=== PATIENT | male | born 1955 | race Caucasian/White ===

== ENCOUNTER → 2017-03-24 | Outpatient (CLI) | payer OTHER, MEDICAID ==
--- NOTE | 2017-03-24 09:51 | NOWCEV ---
[facility] OUTPATIENT REHABILITATION SERVICES WHEELCHAIR CLINIC EVALUATION AND LETTER OF JUSTIFICATION Patient Name: GIOVANNI CADENA Physician: Eunice Arrieta MD Eval Date: 03/24/17 Therapist: Winter Rob PT,MSPT Date of : 1955 MR#: [id number] Contact: Ramiro Draperford Subscriber: GIOVANNI CADENA Primary Ins: [employer] Subscriber #: [id number] EVALUATION FINDINGS Medical history - Giovanni is a 61 y/o male who was dx with secondary progressive Multiple Sclerosis (MS) in 2003. Since that time he has had a consistent decline in his mobility. He also has a PMH significant for atrial fibrillation, a R total knee arthroplasty, coronary artery disease, and hypertension. Giovanni has been home bound due to his MS for several years. He was referred to this clinic by his doctor to have recommendations made for the most medically appropriate PWC to meet his needs in the community and in the home as his condition progresses. Functional Mobility -La functional mobility is significantly limited by his impaired balance and fatigue. He is able to ambulate ~25 distances within his home with use of a cane and UE support from rails installed around the home. He reports he has tried ambulating with a rw, but found the device difficulty to maneuver. When he walks, Giovanni as a wide KATIE, dec heel strike, dec push off and a short step length. He postures with L UE for balance and intermittently catches his R toe. He completed the TUG in 22 sec with a cane, which indicates an increased fall risk. To complete transfers, Giovanni utilizes a stand/squat pivot strategy. He pushes off strongly with his UEs on the chair arm rest and presses the back of his legs against the surface to maintain his balance. To sit, Giovanni has very poor eccentric control, despite use of his arms on the arm rest. Giovanni is I with bed mobility. Giovanni does have a positive fall history. He reports that he has fallen multiple times in his home when he fatigues, and catches his toe or his R leg gives out. Motor involvement - Giovanni's R side is impacted by the MS more than his L side. MMT is as follows: hip flexion R: 3-/5, L: 4-/5, hip abduction R: 2-/5, L : 2+/5, knee extension R: 4+/5, L: 5/5, DF R: 4-/5, L: 4/5, shoulder abduction and flexion R: 4-/5, L: 4/5. With repeated testing and effort, Giovanni's strength will decline as his MS leads to rapid fatigue which impacts his function and safety. Giovanni has significant tightness in B hamstrings with a passive SLR to 30degrees. He has clonus in B ankles. His coordination is impaired demonstrated by rapid alternating movements being slowed on the R. Giovanni has significantly impaired balance. He demonstrates a loss of balance in response to a minimal perturbation in standing. He showed almost no corrective reactions such as stepping or postural responses in response to challenges and required physical assistance to prevent falling. Posture - Giovanni has a relatively level pelvis. He sits with a slouched posture, rounded shoulders and posterior pelvic tilt. Skin/ Sensation - La reports that he is regularly incontinent of bowel and bladder as a result of his MS. He does also report some hypersensitivity on his backside. He does not have history of skin breakdown. Endurance - Giovanni has poor endurance. He reports that on a good day he can ambulate a maximum of 30' with AD. On a day where he is experiencing increased fatigue from his MS, Giovanni reports he is only able to walk ~10', despite use of an AD. Giovanni has been unable to access the community for some time due to his limited endurance, and intermittently has difficulty accessing his home due to fatigue. ADLs - Giovanni is modified independent with ADLs including bathing and dressing. He relies on his for tasks such as cooking and cleaning. Cognitive/Social - Giovanni lives with his in a single level home with ramp entry. 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 He is only able to access the community with assistance from his to attend medical appointments. Otherwise he is home bound due to his poor endurance and decreased balance from his MS. Giovanni plans on purchasing a wheelchair accessible vehicle to enable him to access with community in his PWC. Current wheelchair - Giovanni does not currently own a manual or power wheelchair. MEDICAL and FUNCTIONAL NEED/OBJECTIVES * To procure a custom PWC to provide Giovanni with independent, safe, and consistent access to the community to complete activities such as grocery shopping and attending medical appointments. Also required to provide Giovanni with safe access to his home during an MS exacerbation and as is MS progresses. PRIMARY FUNCTIONAL LIMITATION (G Code) * Mobility CURRENT STATUS OF PRIMARY FUNCTIONAL LIMITATION (Severity Modifier) * At least 40 percent but less than 60 percent impaired, limited or restricted ( CK) GOAL STATUS OF PRIMARY FUNCTIONAL LIMITATION (Severity Modifier) * At least 40 percent but less than 60 percent impaired, limited or restricted ( CK) DISCHARGE STATUS OF PRIMARY FUNCTIONAL LIMITATION (Severity Modifier) * At least 40 percent but less than 60 percent impaired, limited or restricted ( CK) EQUIPMENT RECOMMENDATIONS AND JUSTIFICATIONS The following recommendations are believed to be the most cost effective way to meet the patients medical and functional needs. * Group 3 power base (OneTag DILANX SP): Needed to provide Giovanni with safe, independent, and consistent access to the community, as well as his home when having an MS exacerbation and as his MS progresses. Giovanni is not able to access the community and has been home bound for some time as his ability to ambulate is limited due to his poor endurance and balance, even with use of an assistive device such as a cane or walker. He reports on a bad day only being able to ambulate ~10' within his home with his AD, and has had many falls within his home even when utilizing his AD. A MWC, even a light weight model, is not appropriate due to Giovanni's poor endurance. He would not be able to self propel distances from his car/around a grocery store without fatiguing and placing his at risk for exacerbation of his MS symptoms. Additionally, Giovanni would not be able to self propel a MWC up a ramp due to fatigue. A scooter is not appropriate as Giovanni will not be able to safely complete transfers onto/ off of a platform without increased risk of fall, and the base of a scooter is too large to fit in Giovanni's home to allow him access to MRADLs as his condition progresses. A custom PWC will provide Giovanni with safe and consistent access to the community to complete task such as grocery shopping and independently attending medical appointments, and the more supportive seating system will provide Giovanni with postural support to manage his fatigue. Giovanni will also be able to utilize his MWC in his home when he is too fatigued from his MS to access MRADL, such as walking distances between the bedroom and the bathroom, and as his condition progresses. Additionally, a custom chair is necessary due to the progressive nature of MS as can be modified to fit Giovanni as his symptoms progress. * Height adjustable arm rests: Needed to allow Giovanni to complete transfers safely, The increased height is needed because Giovanni is 6'3" tall, and he needs the increased height to gain leverage to stand. * Retractable joystick: Needed so that joystick can be pushed out of the way so that is does not interfere with transfers. Need to allow Giovanni to pull more closely up to surfaces to complete tasks. * Batteries: Needed to provide the chair with power to allow Giovanni to drive his device. * Center mount foot plate: Needed so that foot rest can be easily moved out of the way to complete transfers. Also needed to keep the foot print of the chair small, as Giovanni will use the [facility] to access his home as his MS progresses. * Skin protection cushion: Needed to provide Giovanni with appropriate pressure distribution and decreased skin irritation when he is in his chair to help manage his skin hypersensitivity and decrease risk of skin breakdown which he is at greater risk for due to his incontinence. * General use backrest: Needed to provide Giovanni with postural support as he fatigues when accessing the community in his [facility], and to prevent development of postural abnormalities as his MS progresses. * Transit tie downs: Needed to secure Giovanni's chair for safe use during transit, as he will be purchasing a [facility] accessible vehicle and utilizing public transportation. These recommendations are based on the likelihood that Giovanni will require the use of a wheelchair for mobility for the rest of his life. If you have any questions or concerns regarding the stated recommendations, please feel free to contact the therapist at . Thank you for your cooperation in obtaining the necessary equipment for this patient. STACIE Seo
== END ==
PROVIDERS: ATTEND Family Medicine
DX: G35 Multiple sclerosis (principal); I48.91 Unspecified atrial fibrillation; I25.10 Atherosclerotic heart disease of native coronary artery without angina pectoris; I10 Essential (primary) hypertension; Z96.651 Presence of right artificial knee joint
CPT/HCPCS: 97162; G8978; G8979; G8980

== ENCOUNTER 2017-09-02 16:56 | Inpatient (IN) | payer OTHER, MEDICAID ==
--- NOTE | 2017-09-02 17:01 | EDPHY ---
H & P Time Seen by Provider: 09/02/17 16:57 HPI/ROS: CHIEF COMPLAINT: Left-sided weakness, fall HISTORY OF PRESENT ILLNESS: This patient is a pleasant 62 y/o male with history of multiple sclerosis presenting following a fall due to left-sided leg weakness. He is generally followed by a neurologist at [facility]. Over the last 10 days, he has had left leg weakness. Initially, he felt a pain in his upper thigh similar to a bruised feeling. He denies numbness but states the leg "does not seem to be working". He has fallen about six times since this began. He denies injuring himself or striking his head. He generally ambulates with a cane but has been using a walker or wheelchair over the past week. He is scheduled for MRI brain and spine on Thursday, but his family has been unable to properly care for him and is concerned regarding his frequent falls. The patient denies any weakness in his arms or his right leg. No headache, chest pain, abdominal pain, other complaints. REVIEW OF SYSTEMS: A 10 point review of systems was performed and is negative with the exception of the elements mentioned in the history of present illness. Past Medical/Surgical History: Multiple sclerosis CAD s/p stent placement Social History: . Lives in [place]. Former smoker. Physical Exam: General Appearance: Alert, pleasant Eyes: Pupils equal and round, no conjunctival pallor or injection ENT, Mouth: Mucous membranes moist Neck: Normal inspection Respiratory: Lungs are clear to auscultation Cardiovascular: Regular rate and rhythm Gastrointestinal: Abdomen is soft and non-tender Neurological: Alert, oriented x3, cranial nerves II through XII intact, sensory intact to light touch, motor: 4+/5 LLE, 5/5 other extremities Skin: Warm and dry, no rash Extremities: Nontender, no pedal edema Psychiatric: Mood and affect normal Constitutional: Initial Vital Signs Heart Rate 65 09/02/17 17:04 Respiratory Rate 20 09/02/17 17:04 Blood Pressure 189/102 H 09/02/17 17:04 O2 Sat (%) 97 09/02/17 17:04 O2 Delivery Mode Room Air Allergies/Adverse Reactions: No Known Allergies Allergy (Verified 09/02/17 17:03) Home Medications: Medication Instructions Recorded Carvedilol [Coreg (*)] 25 mg PO BIDMEAL 09/02/17 Cyclobenzaprine [Flexeril 10 MG 10 mg PO TID PRN 09/02/17 (*)] FLUDROCORTISONE ACETATE 0.1 mg PO DAILY 09/02/17 Losartan Potassium [Cozaar 25 mg 25 mg PO DAILY 09/02/17 (*)] Nitroglycerin [Nitrostat 0.4 mg 0.4 mg SL Q5M PRN 09/02/17 (*)] Rosuvastatin Calcium [Crestor 20mg 20 mg PO DAILY 09/02/17 (*)] Medical Decision Making ED Course/Re-evaluation: 62 y/o male with history of MS presents with LLE weakness leading to multiple falls in the last 10 days. Concern for MS exacerbation. Fortunately there is no evidence of injury. No clinical history of infection and he is afebrile. Plan for admission for further management. Case management consulted. Plan for labs including CBC, chemistries, UA. Plan for MRI brain with and without contrast. If this is unremarkable, he will need an MRI of his spine. 17:[address] with [address] service. Dr. Lutz accepts admission for MS, LLE weakness. 1920: MRI of the brain read by Dr. Hayden Luna reveals no evidence of active MS. Differential Diagnosis: Differential diagnosis includes though is not limited to cardiac dysrhythmia, CVA, TIA, GI bleed, sepsis, hypoglycemia. - Data Points Laboratory Results: Laboratory Results 09/02/17 17:30 09/02/17 17:30 Medications Given: Carvedilol (Coreg) 25 mg PO BIDMEAL [facility] Stop: 03/01/18 22:59 Last Admin: 09/03/17 18:18 Dose: 25 mg Cyclobenzaprine HCl (Flexeril) 10 mg PO TID PRN PRN Reason: Spasms Stop: 03/01/18 22:58 Last Admin: 09/03/17 09:10 Dose: 10 mg Enoxaparin Sodium (Lovenox) 40 mg SC DAILY [facility] Stop: 03/02/18 08:59 Last Admin: 09/03/17 09:11 Dose: 40 mg Fludrocortisone Acetate (Florinef) 0.1 mg PO DAILY [facility] Stop: 03/02/18 08:59 Last Admin: 09/03/17 09:08 Dose: 0.1 mg Methylprednisolone Sodium (Succinate 1 gm/ Dextrose) 108 mls @ 108 mls/hr IV DAILY [facility] Stop: 09/05/17 12:00 Last Admin: 09/03/17 10:22 Dose: 108 mls Losartan Potassium (Cozaar) 25 mg PO DAILY [facility] Stop: 03/02/18 08:59 Last Admin: 09/03/17 09:08 Dose: 25 mg Rosuvastatin Calcium (Crestor) 20 mg PO DAILY [facility] Stop: 03/02/18 08:59 Last Admin: 09/03/17 09:08 Dose: 20 mg Discontinued Medications Baclofen (Baclofen) 10 mg PO EDNOW ONE Stop: 09/02/17 18:26 Last Admin: 09/02/17 19:39 Dose: 10 mg Departure - Departure Disposition: [facility] Inpatient Acute Clinical Impression: Multiple sclerosis, Weakness of left lower extremity Condition: Fair Report Scribed for: Linda Anaya Report Scribed by: Merari Fernandez Date of Report: 09/02/17 Time of Report: 17:02 Physician Review and Approval Statement: 09/02/17 17:02 Portions of this note were transcribed by a director biomedical engineering. I personally performed a history, physical exam, medical decision making, and confirmed accuracy of information the transcribed note.
[2017-09-02 17:51] LABS: PLATELET COUNT 249 10^3/uL (150-400)
[2017-09-02] MEDS ORDERED: ACETAMINOPHEN 325 MG TAB PO PRN (18:09)
[2017-09-02] MEDS ORDERED: ONDANSETRON DISINTEGRATING 4 MG TAB PO PRN (18:09)
[2017-09-02] MEDS ORDERED: ONDANSETRON 4 MG/2 ML VIAL IVP PRN (18:09)
[2017-09-02] MEDS ORDERED: ZOLPIDEM TARTRATE 5 MG TAB PO PRN (18:09)
[2017-09-02] MEDS ORDERED: BACLOFEN 10 MG TAB ONE (18:24)
[2017-09-02] MEDS ORDERED: BACLOFEN 10 MG TAB PO ONE (18:25)
[2017-09-02] MEDS ORDERED: GADOBUTROL 10 ML VIAL IVP ONE (18:41)
[2017-09-02] MEDS ORDERED: NITROGLYCERIN 0.4 MG BTL SL PRN (22:59)
[2017-09-02] MEDS ORDERED: hydrALAZINE 25 MG TAB PO PRN (23:02)
--- NOTE | 2017-09-02 23:11 | PDGENHP ---
History and Physical History and Physical: CC: Weakness and falls HISTORY: This patient with a long history of multiple sclerosis comes into the ER now noticing significant progression of weakness in his left leg over the last couple of weeks, then onset of urinary frequency and incontinence as well as slurring of his voice, coughing and throat clearing with swallowing, and generalized weakness. The progression of weakness in his legs led him to start falling and he has had at least 6 falls over the last couple days, he does not feel there is any injury. He has not noticed any loss of sensation in his legs face or otherwise. There is no headache, no fever, no symptoms of acute infectious illness otherwise. He has had no recent changes in medication. He has not been bleeding vomiting having diarrhea or other fluid losses. He does not use alcohol. He is not on any disease modifying treatment for MS at this time having been told by his neurologist at [facility] that he had be developed was called progressive MS and that they had no further treatments. At this point he uses symptomatic treatment such as muscle relaxers. The patient tells me that he visited a spine surgeon at the [facility] last week because of his leg weakness. He was told that there was nothing surgical did due for his weakness and that it was not from his spine. He was also told by the surgeon that he he felt that there were new treatments since he was last on treatment for MS that he should consider and that he should be back working with the MS physicians in the clinic there. ROS: A comprehensive 10 system review revealed no other significant findings PAST MEDICAL HISTORY: Multiple sclerosis, initially diagnosed as relapsing remitting but apparently now called progressive by his neurologist at [facility] Coronary artery disease status post stents FAMILY MEDICAL HISTORY: Nothing related to his current illness or symptoms SOCIAL HISTORY: lives with his . His and daughter are here with him now No alcohol no tobacco no street drugs MEDICATIONS: The patients list has been reconciled by our clinical pharmacist in the EMR. I have reviewed the list and ordered appropriate medicines. PHYSICAL EXAMINATION: Vital Signs: Some systolic hypertension of significance here tonight, otherwise stable vitals without fever Milk Of Lime Slaker: Sinus Examination: General: alert, oriented, good mentation, relaxed Neurologic: normal language and while his speech sounds normal to me he and his family both appreciate now that there is some slurring to his pronunciation the subtle but present; normal barrel handler, normal eye movements and pupil reflexes; his left leg is noticeably weaker than the right at both proximal hip flexion extension and ankle and toe dorsiflexion; no definite sensory loss Skin: warm, dry, good color, no rash HEENT: normal Neck: no mass or jvd Resps: relaxed Lungs: clear breath sounds Heart: regular, no murmur Abdomen: soft, nondistended, nontender, +BS, no mass Upper Extremities: normal Lower Extremities: no edema, warm No Bleeding or bruising IV site: looks normal LABORATORY DATA: CBC, metabolic panel, UA all unremarkable RADIOLOGY STUDIES: MRI is done with and without contrast and I reviewed the images as well as radiologist's report: There are obvious extensive demyelinating lesions scattered through the left and right brain; the radiologist does not feel that there is any evidence of acute active inflammatory change though I am not able myself to discern the difference between acute or chronic demyelination; no other acute abnormalities at this time ASSESSMENT: -acute onset of left leg weakness both proximal and distal, resulting in falls over the past 10-14 days -acute onset of urinary frequency and incontinence without any burning or discomfort -acute onset of slurring of speech as well as dysphagia with symptoms suggesting aspiration is likely occurring -chronic MS, probably progressive but no current neurologic records available -patient reports that his spine surgeon last week at the [facility] does did not believe his current symptoms are related to spine disease -stable history of coronary disease At this point the MRI does not in the radiologist's interpretation represent acute inflammatory lesions of MS flare. Whether there is any possibility that the MRI could be missing that I would ask neurologist to comment on. There is no change in medications, fever, laboratory abnormality, or other findings that would easily explain a worsening of chronic MS dysfunctions from a metabolic or similar mechanism. The urinary symptoms sound most likely caused by MS but 1 could possibly consider that a urinary tract infection could be present and that could cause worsening of chronic MS symptoms. PLANS: Admission hospital with fall risk precautions Neurology consult Check urinalysis but sure there is no urinary infection Will not start high-dose steroids at this time but he may need that if there is a sense after neurology consultation that this may actually be an acute MS flare. Continue the patient's other current medications at this time Have requested get records from the [facility] to at least cover his spine surgery visits as his symptoms could potentially be caused by either spinal MS or compressive disease from disc or other etiology, hopefully can get some neurology clinic records as well I have reviewed the patient's case in detail with Dr. Linda Anaya
[2017-09-02] MEDS: CARVEDILOL 25 MG TAB PO SCH (23:44)
[2017-09-03] MEDS: CARVEDILOL 25 MG TAB PO SCH ×2 (09:07→18:18)
[2017-09-03] MEDS: LOSARTAN POTASSIUM 25 MG TAB PO SCH (09:08)
[2017-09-03] MEDS: ROSUVASTATIN CALCIUM 20 MG TAB PO SCH (09:08)
[2017-09-03] MEDS: FLUDROCORTISONE ACETATE 0.1 MG TAB PO SCH (09:08)
[2017-09-03] MEDS: CYCLOBENZAPRINE 10 MG TAB PO PRN ×2 (09:10→23:14)
[2017-09-03] MEDS: ENOXAPARIN 40 MG/0.4 ML SYR SC SCH (09:11)
--- NOTE | 2017-09-03 10:13 | GCON ---
[f rep st] CONSULTATION NEUROLOGY CONSULTATION REFERRING PHYSICIAN: Jose Lutz MD HISTORY: The patient is a 62-year-old gentleman who I have seen in the past for multiple sclerosis c linical trial, but has previously been followed at the [facility] for his secondary progr essive multiple sclerosis. He is here because about 10 days ago he started having rather profound we akness of the left leg. He awoke and fell because of weakness in the leg and has continued to have w eakness there. He spoke to Dr. Arrieta on the phone, who advised him to go to the hospital. The pa jose is really not on any specific disease modifying therapy at this point because the feeling has b een it is unlikely to be productive or helpful for him. This is through multiple sclerosis experts a t the [facility]. He is not safe to be at home, and previously was walking independently even if he was using wall walking. He had a little bit of low back pain which has resolved. He den ies left lower extremity pain. The leg is simply weak. There is not a lot of numbness change from h is baseline. PAST MEDICAL HISTORY: As outlined above. History of coronary disease. FAMILY HISTORY: Noncontributory. SOCIAL HISTORY: He lives with his . No alcohol or smoking. CURRENT MEDICATIONS: Tylenol, Coreg, Flexeril, Lovenox, Florinef, Cozaar, Nitrostat, Ambien, Crestor . ALLERGIES: No drug allergies. REVIEW OF SYSTEMS: A 10-point review of systems was completed and unremarkable except for that noted above. PHYSICAL EXAMINATION: VITAL SIGNS: Blood pressure is 154/94, pulse of 68, respirations 16, temperat ure 36.8. GENERAL: He is well developed in no acute distress. NECK: Supple. No bruits or masses. CARDIAC: Regular rate and rhythm. No murmur. NEUROLOGIC: He is awake, alert, attentive with gen erally clear and fluent speech although I would say there is a mild dysarthria, but this is about his baseline from knowing him in the past. Pupils 3 mm and reactive. Extraocular movements are intact. Normal facial sensation and strength. Palate elevates symmetrically and tongue protrudes midline. He has a strong cough. Strong sniff. Motor exam reveals fairly well preserved strength in the uppe r extremities, and at least 4 to 4+/5 right lower extremity, but left lower extremity proximally and distally is in the 2 to 3/5 range with some proximal atrophy. Reflexes are 1+. Sensation is slightl y diminished to temperature in the left leg compared to the right. I reviewed the brain MRI showing extensive changes of demyelinating disease without any obvious, acute demyelinating lesions. LABORATORY STUDIES: Unremarkable CBC and electrolytes. No significant changes in the urine. IMPRESSION: The patient is having a probable multiple sclerosis exacerbation on top of his baseline secondary progressive disease for which he has had treatment in the past and extensive work with clin ical trials, but is continuing to have a gradual decline, although this abrupt change is consistent w ith an acute multiple sclerosis related problem. It may very well be at a spinal level, but I do not think he needs spinal cord imaging. That really would not change our management strategies at this point because I do not suspect a mass lesion or other alternative explanation very likely. He needs inpatient rehab I believe, and we will start him on IV steroids with a plan to give him 3 days of IV Solu-Medrol 1000 mg. I do not believe he needs a tapering dose after that. Today's total unit time was 70 minutes. /[id number]/MODL
[2017-09-03] MEDS: methylPREDNISolone SOD SUCC 1 GM in D5W 100 ML IV SCH (10:22)
--- NOTE | 2017-09-03 10:43 | HOSPPROG ---
Hospitalist Progress Note Assessment/Plan: 62y male with c/o weakness. First encounter, chart reviewed. D/W RN and CM. #Likely MS exacerbation appreciate neurology consult started IV steriod x 3 days #Weakness rec inpt rehab cont PT/OT eval #Falls over the past 10-14 days likely related to above #acute onset of urinary frequency and incontinence UA negative #acute onset of slurring of speech dysphagia with symptoms suggesting aspiration is likely occurring follow close #stable history of coronary disease #Dispo hopefully inpt rehab Subjective: Feeling tired and weak. No pain. No issues. Objective: Vital Signs Temp Pulse Resp BP Pulse Ox 36.8 C 68 16 154/94 H 95 09/03/17 07:23 09/03/17 09:07 09/03/17 07:23 09/03/17 09:08 09/03/17 07:23 Laboratory Results 09/02/17 18:15 09/02/17 09/03/17 09/04/17 05:59 05:59 05:59 Intake Total 100 300 Output Total 600 Balance -500 300 - Physical Exam Constitutional: no apparent distress, appears nourished, not in pain Eyes: PERRL, anicteric sclera, EOMI Ears, Nose, Mouth, Throat: moist mucous membranes, hearing normal, ears appear normal Cardiovascular: regular rate and rhythym, No JVD, No edema Respiratory: no respiratory distress, no rales or rhonchi, reduced air movement Gastrointestinal: normoactive bowel sounds, No tenderness, No ascites Skin: warm, normal color, No mottled Musculoskeletal: normal joint ROM, abnormal gait, generalized weakness Neurologic: AAOx3, weakness Psychiatric: interacting appropriately, not anxious, not encephalopathic, thought process linear ICD10 Worksheet Patient Problems: Problems Problem Status Onset Multiple sclerosis Acute Weakness of left lower extremity Acute
--- NOTE | 2017-09-03 11:08 | ASMTCMCOM ---
CM Note CM Note Notes: Patient admitted for acute on chronic weakness, likely due to progression of his MS. He is followed by MS experts at the [facility]. Neurology eval today recommends a few days of IV steroids and inpatient rehab. An order has been placed. PT/OT/HOSE TENDER have yet to see patient; we will await their recommendations. Patient lives independently with his Nae. Case Management will follow for discharge planning. Date Signed: 09/03/2017 11:08 AM Electronically Signed By:Olamide Stapleton RN
--- NOTE | 2017-09-03 13:26 | PDMN ---
Medical Necessity Medical necessity: Pt meets IP criteria per MD; est los >2 mn for eval/tx of acute onset of significant LLE weakness resulting in falls, urinary frequency & incontinence, slurring of speech, as well as dysphagia w/symptoms suggesting aspiration; admit for further workup/monitoring, Neuro consult, possible IV steroids & therapies; hx progressive MS & CAD s/p stents; per H&P & order
[2017-09-04 07:55] VITALS: BP 111/76; RESP 19; TEMP 98.4; O2SAT 98
[2017-09-04] MEDS: methylPREDNISolone SOD SUCC 1 GM in D5W 100 ML IV SCH (09:09)
[2017-09-04] MEDS: CARVEDILOL 25 MG TAB PO SCH (09:10)
[2017-09-04] MEDS: FLUDROCORTISONE ACETATE 0.1 MG TAB PO SCH (09:10)
[2017-09-04] MEDS: ENOXAPARIN 40 MG/0.4 ML SYR SC SCH (09:10)
[2017-09-04] MEDS: ROSUVASTATIN CALCIUM 20 MG TAB PO SCH (09:11)
[2017-09-04] MEDS: LOSARTAN POTASSIUM 25 MG TAB PO SCH (09:11)
[2017-09-04 09:12] VITALS: PULSE 100
--- NOTE | 2017-09-04 09:29 | NEUROPROG ---
Assessment: Total unit time 15 min today. The patient is stable after 1 day of IV Solu- Medrol and should be a candidate for inpatient rehab. He will continue 2 more days of IV steroids. This multiple sclerosis exacerbation is on top of chronic progressive multiple sclerosis. Subjective: The patient tells me this morning that he is feeling a little bit better in the left leg. He cannot stand for more than a few seconds because of left leg weakness and that is only with 2 people helping to support him. Objective: Vital Signs Temp Pulse Resp BP Pulse Ox 36.9 C 100 19 111/76 98 09/04/17 07:53 09/04/17 09:10 09/04/17 07:53 09/04/17 09:11 09/04/17 07:53 Laboratory Results 09/02/17 18:15 09/03/17 09/04/17 09/05/17 05:59 05:59 05:59 Intake Total 100 878 Output Total 600 600 200 Balance -500 278 -200 He continues to have about 3/5 strength in the left lower extremity or only slightly greater. Allergies/Adverse Reactions: No Known Allergies Allergy (Verified 09/02/17 17:03)
--- NOTE | 2017-09-04 12:43 | HOSPPROG ---
Hospitalist Progress Note Assessment/Plan: Patient is a 61-year-old male with a history of multiple sclerosis who presented the emergency room with progression of weakness in his left leg, then onset of urinary frequency and incontinence as well as slurring of his voice. He visited a spine surgery in because of the leg weakness. He was told there is nothing due to this weakness and was not from his spine. Today is my 1st encounter with the patient. Chart reviewed. Reviewed Dr. Lawrence input. Will discharge him to inpatient rehab today #multiple sclerosis exacerbation is on top of chronic progressive multiple sclerosis. appreciate neurology consult started IV steroid x 2/3 days #Weakness rec inpt rehab cont PT/OT evaluated/ recommendation is rehab #Falls over the past 10-14 days likely related to above #acute onset of urinary frequency and incontinence UA negative #acute onset of slurring of speech dysphagia with symptoms suggesting aspiration is likely occurring follow close #history of coronary disease #tachycardia resolve w coreg (on this regularly) #Dispo inpt rehab Subjective: Giovanni has no complaints, concerned about his left leg weakness. Objective: Vital Signs Temp Pulse Resp BP Pulse Ox 36.9 C 100 19 111/76 98 09/04/17 07:53 09/04/17 09:10 09/04/17 07:53 09/04/17 09:11 09/04/17 07:53 Laboratory Results 09/02/17 18:15 09/03/17 09/04/17 09/05/17 05:59 05:59 05:59 Intake Total 100 878 Output Total 600 600 200 Balance -500 278 -200 - Physical Exam Constitutional: no apparent distress, appears nourished, not in pain Eyes: PERRL Ears, Nose, Mouth, Throat: hearing normal Respiratory: no respiratory distress Skin: warm Musculoskeletal: generalized weakness Neurologic: AAOx3 Psychiatric: interacting appropriately ICD10 Worksheet Patient Problems: Problems Problem Status Onset Multiple sclerosis Acute Weakness of left lower extremity Acute
[2017-09-04] MEDS ORDERED: FLUoxetine 20 MG CAP PO SCH (13:30)
--- NOTE | 2017-09-04 13:35 | PDIAF ---
- Diagnosis Diagnosis: acute MS exacerbation on progressive MS Code Status: Full Code - Medication Management Discharge Medications: Medications to Continue on Transfer Carvedilol [Coreg (*)] 25 mg PO BIDMEAL 09/02/17 [Last Taken 09/02/17 09:00] Cyclobenzaprine [Flexeril 10 MG (*)] 10 mg PO TID PRN 09/02/17 [Last Taken 09/02 09:00] FLUDROCORTISONE ACETATE 0.1 mg PO DAILY 09/02/17 [Last Taken 09/02/17] Losartan Potassium [Cozaar 25 mg (*)] 25 mg PO DAILY 09/02/17 [Last Taken ] Nitroglycerin [Nitrostat 0.4 mg (*)] 0.4 mg SL Q5M PRN 09/02/17 [Last Taken Unknown] Rosuvastatin Calcium [Crestor 20mg (*)] 20 mg PO DAILY 09/02/17 [Last Taken 09:00] FLUoxetine [Prozac 20 MG (*)] 40 mg PO DAILY 09/04/17 [Last Taken 09/02/17] methylPREDNISolone SOD SUCC [Solu-Medrol 1 gm (*)] 1 gm IV DAILY #1 vial [Last Taken Unknown] Urology Nurse Antibiotics: methylprednisolone 1 gm iv x one more dose on 09/05/17, then dc Discharge Medications: Refer to the Discharge Home Medication list for PRN reason. - Orders Services needed: Physical Therapy, Occupational Therapy, Speech Language Pathologist Diet Recommendation: no restrictions on diet Diet Texture: Regular Texture Diet, Thin Liquids, Meds Whole w/Liquids Additional: PLEASE NOTE, PATIENT NEEDS ONE DOSE IV OF STEROIDS, THEN DC - Follow Up Care Current Providers and Referrals: Patient,NotPresent [Unknown] - As per Instructions Duncan Lawrence MD [Medical Doctor] -
--- NOTE | 2017-09-04 13:58 | GDS ---
[f rep st] DISCHARGE SUMMARY DISCHARGE DIAGNOSES: 1. Acute multiple sclerosis exacerbation on progressive multiple sclerosis. 2. Weakness. 3. Falls over the past 10-14 days. 4. Acute onset of urinary frequency and incontinence. 5. Acute onset of slurring speech. 6. History of coronary artery disease. 7. Tachycardia. CONSULTATION: Dr. Duncan Lawrence. HISTORY: Briefly, the patient is a 62-year-old male with a history of multiple sclerosis who present ed to the emergency room with progression of weakness in his left leg. Then he had onset of urinary frequency, incontinence, as well as slurring of his voice. In the past, he has visited a spine surge on because of his leg weakness. He was told there was nothing to do due to his weakness and was not from the spine. He was seen and evaluated by Dr. Duncan Lawrence and was given IV steroids. He is fe eling better after 2 doses of IV steroids, but requires still assist x2. Additionally, he had an MRI of the brain, which showed extensive periventricular and subcortical white matter disease in the pat tern typical of multiple sclerosis. He has no evidence of active demyelination. No acute ischemia o r intracranial hemorrhage was noted. He has atrophy. Today, he will be discharged to inpatient reha bilitation for strengthening. He will get 1 more dose of IV steroids at the inpatient rehab. HOSPITAL COURSE BY PROBLEM: 1. Acute multiple sclerosis exacerbation on top of chronic progressive multiple sclerosis. He will be on IV steroids. He has received his 2nd dose today. He will need 1 more dose tomorrow. 2. Weakness. PT and OT evaluated him. They are recommending rehabilitation. 3. Falls due to the above. 4. Acute onset of urinary frequency and incontinence. His urinalysis is negative. 5. Acute onset of slurring of speech. He will be seeing speech therapy at the rehabilitation [facility]. He did not have any at the time I evaluated him. 6. History of coronary disease, stable. 7. Tachycardia. This resolved once he resumed his Coreg. DISCHARGE CONDITION: Stable. Blood pressure is 111/76, heart rate is 100, respiratory rate is 19, O 2 saturation on room air 98%, temperature 36.9 Celsius. MEDICATIONS AT DISCHARGE: Please see the EMR. DISCHARGE INSTRUCTIONS: 1. Further follow up with Dr. Lawrence. 2. Recommending he get IV steroids for 1 more day. Greater than 30 minutes discharging and coordinating his care. /[id number]/MODL
[2017-09-04] MEDS: CYCLOBENZAPRINE 10 MG TAB PO PRN (15:15)
--- NOTE | 2017-09-04 16:08 | ASDISCHSUM ---
Discharge Information Plan Status:Inpatient Rehab Medically Cleared to Leave: Discharge Date:09/04/2017 03:27 PM CM D/C Disposition:[facility] ADT D/C Disposition:[facility] IP Projected Discharge Date:09/04/2017 11:00 AM Transportation at D/C:ALS/BLS Discharge Delay Reason: Follow-Up Date:09/04/2017 11:00 AM Discharge Slot: Final Diagnosis: Placement Information Referral Type:Rehabilitation Hospital Referral ID:[id number] Provider Name:[facility] Address 1:[address] Phone Number: Address 2: Fax Number: City:[place] Selection Factors: State:[place] Patient Contact Information Contact Name:JACOBOEMMA Relationship: Address:[address] [place] [address] City:[place] Alternate Phone: State/Zip Code:[place] [address] Email: Financial Information Financial Class:Medicare Primary Plan Desc:MEDICARE INPATIENT Primary Plan Number:[id number] Secondary Plan Desc:MED[place] Secondary Plan Number:[id number] Assessment Information [facility] CM Progress Note CM Note CM Note Notes: Patient admitted for acute on chronic weakness, likely due to progression of his MS. He is followed by MS experts at the [facility]. Neurology eval today recommends a few days of IV steroids and inpatient rehab. An order has been placed. PT/OT/PROCESSING REP have yet to see patient; we will await their recommendations. Patient lives independently with his Nae. Case Management will follow for discharge planning. Date Signed: 09/03/2017 11:08 AM Electronically Signed By:Olamide Stapleton RN [facility] CM Progress Note CM Note CM Note Notes: Pt medically stable for d/c to [facility] inpatient rehab who can continue pt IV steroids. PCS in chart and stretcher transport scheduled w [facility] for 13:30. Orders to be obtained via [employer]. Date Signed: 09/04/2017 04:07 PM Electronically Signed By:ARTURO Grayson Intervention Information
--- NOTE | 2017-09-04 16:08 | ASMTCMCOM ---
CM Note CM Note Notes: Pt medically stable for d/c to [facility] inpatient rehab who can continue pt IV steroids. PCS in chart and stretcher transport scheduled w [facility] for 13:30. Orders to be obtained via [employer]. Date Signed: 09/04/2017 04:07 PM Electronically Signed By:ARTURO Grayson
== END 2017-09-04 15:27 | DRG 59 ==
LOC: EDUNIT# → F3N 19:53
PROVIDERS: ADMIT Internal Medicine; ATTEND Hospitalist
DX: G35 Multiple sclerosis (principal); R53.1 Weakness; Z91.81 History of falling; R47.1 Dysarthria and anarthria; R35.0 Frequency of micturition; R32 Unspecified urinary incontinence; E78.00 Pure hypercholesterolemia, unspecified; I25.10 Atherosclerotic heart disease of native coronary artery without angina pectoris; Z95.5 Presence of coronary angioplasty implant and graft; I42.1 Obstructive hypertrophic cardiomyopathy; I10 Essential (primary) hypertension
CPT/HCPCS: 92523-GN; 92610-GN; 97161-GP; 97165-GO; 97530-GO; 97530-GP; 97535-GO; A9585; G8978-GP-CM; G8979-GP-CJ; G8987-GO-CJ; G8988-GO-CI; G8996-GN-CH; G8997-GN-CH; G8998-GN-CH; G8999-GN-CI; G9158-GN-CI; G9186-GN-CI; J1650; J2930

== ENCOUNTER 2017-09-03 16:16 | Inpatient (IN) | payer OTHER, MEDICAID ==
[2017-09-04] MEDS ORDERED: BENEFIBER/NUTRISOURCE FIBER PKT 1 EACH PO PRN (17:18)
[2017-09-04] MEDS ORDERED: MAGNESIUM HYDROXIDE 30 ML UDCUP PO PRN (17:18)
[2017-09-04] MEDS ORDERED: POLYETHYLENE GLYCOL 3350 17 GM PKT PO PRN (17:18)
[2017-09-04] MEDS ORDERED: MAG HYDROX/AL HYDROX/SIMETH 30 ML UDCUP PO PRN (17:18)
[2017-09-04] MEDS ORDERED: BISACODYL 10 MG SUPP PR PRN (17:18)
[2017-09-04] MEDS ORDERED: NITROGLYCERIN 0.4 MG BTL SL PRN (17:29)
--- NOTE | 2017-09-04 17:36 | PDOREHIP ---
Admission IRF-TIA - Admission - 3 Day Assessment Period Admission Date/Day 1: 09/04/17 Day 2: 09/05/17 Day 3: 09/06/17 - Skin Conditions # Stage 1 Pressure Ulcers-Admission: 0 # Stage 2 Pressure Ulcers-Admission: 0 # Stage 3 Pressure Ulcers-Admission: 0 # Stage 4 Pressure Ulcers-Admission: 0 # Unstageable Pressure Ulcers (Non-remove Dress)-Admission: 0 # Unstageable Pressure Ulcers (Slough/Eschar)-Admission: 0 # Unstageable Pressure Ulcers (Deep Tissue Injury)-Admission: 0
[2017-09-04] MEDS: CARVEDILOL 25 MG TAB PO SCH (19:21)
--- NOTE | 2017-09-04 19:30 | GHP ---
[f rep st] HISTORY AND PHYSICAL Corrected report POST ADMISSION PHYSICIAN EVALUATION AND REHABILITATION TREATMENT PLAN DATE OF ADMISSION: 09/04/2017 DATE OF EVALUATION: 09/04/2017 TIME OF EVALUATION: 4:30 p.m. REFERRING FACILITY: [facility]. IMPAIRMENT GROUP: 3.1 multiple sclerosis. DATE OF ONSET: 09/02/2017 REHABILITATION DIAGNOSIS: Multiple sclerosis, exacerbation. ETIOLOGIC DIAGNOSIS: Lower extremity weakness, left greater than right. Cognitive dysfunction. REFERRING PHYSICIAN: Jose Lutz MD. CONSULTING PHYSICIAN: Duncan Lawrence MD HISTORY OF PRESENT ILLNESS: A 62-year-old male with long history of multiple sclerosis who presented to the emergency department at [facility] on with significant progression of left lower extremity weakness which he stated began 2-3 weeks prior to admission. Subsequently, he noticed urinary frequency and incontinence as well as slurring in his voice, coughing and throat clearing with swallowing as well as superimposed generalized weakness. He suffered from multiple falling episodes while at home, counting at least 6 falls over the previous few days prior to admission. He was started on IV Solu- Medrol x3 days beginning 09/03/2017. He was receiving integrated PT, OT, and speech therapy, and was felt appropriate for transfer to the rehab unit. 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 Lawrence. He could not give details regarding this and at this point, proved to be a poor historian stating invariably that he has not had any multiple sclerosis exacerbations since he was diagnosed at age 49 and then went on stating that he had had multiple exacerbations of multiple sclerosis but none since being on the multiple sclerosis study. He furtherly stated that this study does not involve medications but this could not be verified. He does report new onset of urinary urgency but denies nocturia. He reports that he was in otherwise good health and does take medications for hypertension, hyperaldosteronemia, high cholesterol, and muscle spasms. LABORATORY STUDIES: On 09/02/2017, white blood count 6.67, hemoglobin 14.9, hematocrit 49.9. Sodium 144, potassium 3.8, chloride 108, carbon dioxide 21, BUN 22, creatinine 0.9. He was treated with IV Solu-Medrol for 2 days with tomorrow being his third day. He was maintained on all of his prehospital admission medications. PRECAUTIONS: He is a fall risk. ACTIVE COMORBIDITIES: Dysphagia, multiple sclerosis exacerbation, chronic progressive left lower extremity weakness, urinary frequency, and incontinence. PAST SURGICAL HISTORY: Status post cardiac stent, date unknown, the patient unable to verify. PREHOSPITAL MEDICATIONS: Carvedilol 25 mg p.o. b.i.d., cyclobenzaprine 10 mg p.o. t.i.d., fludrocortisone acetate 0.1 mg p.o. daily, losartan potassium 25 mg p.o. daily, Nitrostat 0.4 mg sublingual q.5 minutes p.r.n. chest pain, Crestor 20 mg p.o. daily, Prozac 40 mg p.o. daily. Methylprednisolone 1 g IV daily, the patient has 1 more dose. ALLERGIES: No known drug allergies. PSYCHOSOCIAL HISTORY: He reports that he lives at home with , 2 steps up to home. Otherwise, house is on 1 level with multiple handles and grab bars. He plans to return home to live with his . 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 He states that he was able to manage his own affairs prior to most recent hospitalization. He states that he occasionally uses a cane in the home. FAMILY HISTORY: Noncontributory. REVIEW OF SYSTEMS: HEENT: Denies diplopia or other visual disturbances. Denies headache or neck pain. PULMONARY: Denies shortness of breath. CARDIAC : Denies anginal-like symptoms or chest pain. GI: Reports several-day history of constipation. : Reports urinary urgency. Denies nocturia or polyuria. He reports that if his blood sodium level becomes too low, he will have significant amount of urination volumes. MUSCULOSKELETAL: Denies myalgias or specific joint pain. NEUROLOGICAL: As per HPI, reports left lower extremity weakness since recent multiple sclerosis exacerbation. PSYCH: Denies anxiety or depression. CONSTITUTIONAL: Denies decreased appetite or insomnia. PHYSICAL EXAMINATION: GENERAL: Slightly overweight pleasant male. NAD. VITAL SIGNS: Blood pressure 131/77, pulse 76, respirations 12 and regular. HEENT: Pupils equal, round and reactive to light and accommodation. EOMI. No nystagmus. Tracks across all visual burris. NECK: Supple. No JVD. LUNGS: Clear to auscultation. CARDIAC: Regular rate and rhythm. No murmurs, rubs, or gallops. ABDOMEN: Slightly distended. Somewhat hypoactive bowel sounds in all 4 quadrants. No masses. : No Colon present. No suprapubic tenderness. NEUROLOGICAL: Grossly normal upper extremity motor exam. 4+/5 right and left deltoid, biceps, triceps, brachioradialis, wrist and finger extensors. Normal and symmetric electronic pagination system operator strength. Slight Romberg test on the right. LOWER EXTREMITY: Left lower extremity hip flexors 3/5, hamstrings 3+/5, quadriceps 3/ 5, ankle dorsiflexors 2+ to 3- over 5. Grossly right lower extremity motor exam. Sensation to light touch is intact in all dermatomes in both upper and lower extremities. Negative Zuhair test. No ankle clonus. SKIN: hide inspector all 4 extremities. No lesions. No decubitus. PSYCHOLOGICAL: He had some difficulty with short-term memory including naming the hospital he was transferred from, keeping track of physicians he has seen recently, and the extent of multiple sclerosis. CURRENT LEVEL OF FUNCTION: He was tolerating a regular diet with thin liquids and aspiration precautions. He was setup and seated for grooming, needs assist with bathing, dressing and toileting along with needs assist for bed mobility. Transfers for tub shower. Transfer, 2-person, max assist. Transfers moderate assist x2. Balance: Standing balance moderate assist, 2-person. Sitting balance standby assist. Endurance was noted to be poor. Communication was noted to have some slurred speech. Cognition: Decreased per my exam today. Safety precautions: Falls, left-sided weakness. FUNCTIONAL STATUS COMMENTS: Inability to bear weight, left lower extremity. IMPRESSION: A 62-year-old male with recent exacerbation of multiple sclerosis resulting in left lower extremity weakness, gait dysfunction, cognitive deficits (? extent of acute versus chronic) and possible mild dysphagia. He was admitted to [facility] and given 2 days of IV Solu -Medrol. He is to receive his third dose today. He will be modified independent with ambulation, activities of daily living, feeding, balance, transfers, speech. He will be medically stable with medication management and education. Family education, multiple sclerosis education and resources are set up. He will have 45-60 minutes of physical, occupational and speech/language therapy 5-7 days per week over expected inpatient rehab stay of 17 days. It is expected that following discharge, he will continue to benefit from home health services including nursing, speech and language pathology and neuro psych services to help improve cognition. PLAN: 1. Multiple sclerosis exacerbation with left lower extremity weakness, integrated PT and occupational therapy for lower and upper extremity strengthening, respectively. PT and OT to work in concert to address trunk stabilization and balance so the patient can ambulate with as little assistive device and assistance as necessary. Continue methylprednisolone 1 g IV for 1 more day. 2. Cognitive deficits. Speech/Language Pathology will work with the patient to address possible mild dysphagia as well as cognitive dysfunction. 3. Hypertension. Continue carvedilol and losartan. Monitor daily blood pressures 4. History of coronary artery disease with angina. Nitroglycerin 0.4 mg sublingual q.5 minutes p.r.n. anginal-like symptoms. Physical and Occupational Therapy will monitor the patient for anginal-like symptoms during rehab therapy. The patient would also benefit from being monitored with pulse oximeter to make sure O2 saturations do not drop below 93 during therapies. 5. Hypercholesterolemia. Continue Crestor 20 mg daily. 6. Hypoaldosteronemia. Continue fludrocortisone acetate 0.1 mg daily. Will monitor serum sodium levels. FOLLOWUP: He is to follow up with his neurologist, Dr. Duncan Lawrence, upon discharge from our facility. /[id number]/MODL Jeremi acc#, 09/07/17, [place]
[2017-09-04] MEDS: SENNOSIDES/DOCUSATE SODIUM TAB PO SCH (20:35)
[2017-09-04] MEDS: BACLOFEN 10 MG TAB PO SCH (20:36)
[2017-09-05 07:14] LABS: PLATELET COUNT 270 10^3/uL (150-400)
[2017-09-05] MEDS ORDERED: CARVEDILOL 6.25 MG TAB PO SCH ×2 (08:00)
[2017-09-05] MEDS ORDERED: methylPREDNISolone SOD SUCC 1 GM in D5W 100 ML IV ONE (08:00)
[2017-09-05] MEDS: BACLOFEN 10 MG TAB PO SCH ×3 (08:38→20:47)
[2017-09-05] MEDS: CARVEDILOL 25 MG TAB PO SCH ×2 (08:38→18:39)
[2017-09-05] MEDS: FLUoxetine 20 MG CAP PO SCH (08:38)
[2017-09-05] MEDS: FLUDROCORTISONE ACETATE 0.1 MG TAB PO SCH (08:41)
[2017-09-05] MEDS: LOSARTAN POTASSIUM 25 MG TAB PO SCH (08:41)
[2017-09-05] MEDS: ROSUVASTATIN CALCIUM 20 MG TAB PO SCH (08:41)
[2017-09-05] MEDS: SENNOSIDES/DOCUSATE SODIUM TAB PO SCH ×2 (08:42→20:49)
[2017-09-05] MEDS ORDERED: METHYLPREDNISOLONE SOD SUCC IV SCH (09:00)
--- NOTE | 2017-09-05 09:40 | SOAPPROG ---
SOAP Progress Note Assessment/Plan: Assessment: IMPRESSION: A 62-year-old male with recent exacerbation of multiple sclerosis resulting in left lower extremity weakness, gait dysfunction, cognitive deficits (? extent of acute versus chronic) and possible mild dysphagia. He was admitted to [facility] and given 2 days of IV Solu -Medrol. He is to receive his third dose today. He will be modified independent with ambulation, activities of daily living, feeding, balance, transfers, speech. He will be medically stable with medication management and education. Family education, multiple sclerosis education and resources are set up. He will have 45-60 minutes of physical, occupational and speech/language therapy 5-7 days per week over expected inpatient rehab stay of 17 days. It is expected that following discharge, he will continue to benefit from home health services including nursing, speech and language pathology and neuro psych services to help improve cognition. PLAN: 1. Multiple sclerosis exacerbation with left lower extremity weakness, integrated PT and occupational therapy for lower and upper extremity strengthening, respectively. PT and OT to work in concert to address trunk stabilization and balance so the patient can ambulate with as little assistive device and assistance as necessary. Continue methylprednisolone 1 g IV for 1 more day. 2. Cognitive deficits. Speech/Language Pathology will work with the patient to address possible mild dysphagia as well as cognitive dysfunction. 3. Hypertension. Continue carvedilol and losartan. Monitor daily blood pressures. Blood pressure this morning 129/85. 4. History of coronary artery disease with angina. Nitroglycerin 0.4 mg sublingual q.5 minutes p.r.n. anginal-like symptoms. Physical and Occupational Therapy will monitor the patient for anginal-like symptoms during rehab therapy. The patient would also benefit from being monitored with pulse oximeter to make sure O2 saturations do not drop below 93 during therapies. 5. Hypercholesterolemia. Continue Crestor 20 mg daily. 6. Hypoaldosteronemia. Continue fludrocortisone acetate 0.1 mg daily. Will monitor serum sodium levels. Sodium level this morning was 141 Plan: 09/05/17 09:37 Subjective: He has no complaints. He feels that his left lower extremity strength is improving. Objective: Vital Signs Temp Pulse Resp BP Pulse Ox 36.3 C 79 16 129/85 H 93 09/05/17 06:07 09/05/17 06:07 09/05/17 06:07 09/05/17 06:07 09/05/17 06:07 Laboratory Results 09/05/17 06:00 09/05/17 06:00 09/04/17 09/05/17 09/06/17 05:59 05:59 05:59 Intake Total 650 350 Output Total 300 250 Balance 350 100 Physical Exam - Physical Exam General Appearance: WD/WN, alert, no apparent distress Respiratory: lungs clear Cardiac/Chest: regular rate, rhythm, No edema Abdomen: non-tender, soft Neuro/Psych: motor weakness (Left lower extremity weakness, unchanged from yesterday's initial physical exam.), cognition abnormalities (Mild cognitive deficits secondary to MS), speech abnormalities (Mild dysarthria) ICD10 Worksheet Patient Problems: Problems Problem Status Onset Multiple sclerosis Acute Weakness of left lower extremity Acute
[2017-09-06] MEDS: BACLOFEN 10 MG TAB PO SCH ×3 (08:48→22:06)
[2017-09-06] MEDS: FLUDROCORTISONE ACETATE 0.1 MG TAB PO SCH (08:48)
[2017-09-06] MEDS: FLUoxetine 20 MG CAP PO SCH (08:48)
[2017-09-06] MEDS: CARVEDILOL 25 MG TAB PO SCH ×2 (08:48→18:24)
[2017-09-06] MEDS: LOSARTAN POTASSIUM 25 MG TAB PO SCH (08:49)
[2017-09-06] MEDS: ROSUVASTATIN CALCIUM 20 MG TAB PO SCH (08:49)
[2017-09-06] MEDS: SENNOSIDES/DOCUSATE SODIUM TAB PO SCH ×2 (08:49→22:06)
--- NOTE | 2017-09-06 11:50 | SOAPPROG ---
SOAP Progress Note Assessment/Plan: Assessment: IMPRESSION: A 62-year-old male with recent exacerbation of multiple sclerosis resulting in left lower extremity weakness, gait dysfunction, cognitive deficits (? extent of acute versus chronic) and possible mild dysphagia. He was admitted to [facility] and given 2 days of IV Solu -Medrol. He is to receive his third dose today. He will be modified independent with ambulation, activities of daily living, feeding, balance, transfers, speech. He will be medically stable with medication management and education. Family education, multiple sclerosis education and resources are set up. He will have 45-60 minutes of physical, occupational and speech/language therapy 5-7 days per week over expected inpatient rehab stay of 17 days. It is expected that following discharge, he will continue to benefit from home health services including nursing, speech and language pathology and neuro psych services to help improve cognition. PLAN: 1. Multiple sclerosis exacerbation with left lower extremity weakness. LLE weakness is improving . He is having difficulty going from sit to stand. Continue integrated PT and occupational therapy for lower and upper extremity strengthening, respectively. PT and OT to work in concert to address trunk stabilization and balance so the patient can ambulate with as little assistive device and assistance as necessary. Continue methylprednisolone 1 g IV for 1 more day. 2. Cognitive deficits. Speech/Language Pathology will work with the patient to address possible mild dysphagia as well as cognitive dysfunction. 3. Hypertension. Continue carvedilol and losartan. Monitor daily blood pressures. Blood pressure this morning 129/85. 4. History of coronary artery disease with angina. Nitroglycerin 0.4 mg sublingual q.5 minutes p.r.n. anginal-like symptoms. Physical and Occupational Therapy will monitor the patient for anginal-like symptoms during rehab therapy. The patient would also benefit from being monitored with pulse oximeter to make sure O2 saturations do not drop below 93 during therapies. 5. Hypercholesterolemia. Continue Crestor 20 mg daily. 6. Hypoaldosteronemia. Continue fludrocortisone acetate 0.1 mg daily. Will monitor serum sodium levels. Sodium level this morning was 141 7. Urinary urgency-patient does not have a history of being on any medications for benign prostatic hypertrophy. Will obtain urinalysis as a UTI and may cause urinary urgency. Plan: 09/05/17 09:37 09/06/17 11:47 Subjective: No new complaints this am. Reports his LLE is getting stronger. Objective: Vital Signs Temp Pulse Resp BP Pulse Ox 36.6 C 60 16 151/93 H 98 09/06/17 07:19 09/06/17 08:45 09/06/17 07:19 09/06/17 08:45 09/06/17 08:45 Laboratory Results 09/05/17 06:00 09/05/17 06:00 09/05/17 09/06/17 09/07/17 05:59 05:59 05:59 Intake Total 650 1950 1310 Output Total 300 800 720 Balance 350 1150 590 Physical Exam - Physical Exam General Appearance: WD/WN, alert, no apparent distress Respiratory: lungs clear, normal breath sounds Cardiac/Chest: No edema Abdomen: normal bowel sounds, non-tender, soft Neuro/Psych: motor weakness (LLE weakness improving since previous visit, improved left hip flexor and quad strength. ) ICD10 Worksheet Patient Problems: Problems Problem Status Onset Multiple sclerosis Acute Weakness of left lower extremity Acute
[2017-09-06] MEDS: CYCLOBENZAPRINE 10 MG TAB PO PRN (18:24)
[2017-09-07] MEDS: FLUoxetine 20 MG CAP PO SCH (08:33)
[2017-09-07] MEDS: CARVEDILOL 25 MG TAB PO SCH ×2 (08:33→18:08)
[2017-09-07] MEDS: SENNOSIDES/DOCUSATE SODIUM TAB PO SCH ×2 (08:33→20:43)
[2017-09-07] MEDS: LOSARTAN POTASSIUM 25 MG TAB PO SCH (08:34)
[2017-09-07] MEDS: BACLOFEN 10 MG TAB PO SCH ×3 (08:34→20:43)
[2017-09-07] MEDS: FLUDROCORTISONE ACETATE 0.1 MG TAB PO SCH (08:34)
[2017-09-07] MEDS: ROSUVASTATIN CALCIUM 20 MG TAB PO SCH (08:34)
--- NOTE | 2017-09-07 17:11 | SOAPPROG ---
SOAP Progress Note Assessment/Plan: Assessment: IMPRESSION: A 62-year-old male with recent exacerbation of multiple sclerosis resulting in left lower extremity weakness, gait dysfunction, cognitive deficits (? extent of acute versus chronic) and possible mild dysphagia. He was admitted to [facility] and given 2 days of IV Solu -Medrol. He is to receive his third dose today. He will be modified independent with ambulation, activities of daily living, feeding, balance, transfers, speech. He will be medically stable with medication management and education. Family education, multiple sclerosis education and resources are set up. He will have 45-60 minutes of physical, occupational and speech/language therapy 5-7 days per week over expected inpatient rehab stay of 17 days. It is expected that following discharge, he will continue to benefit from home health services including nursing, speech and language pathology and neuro psych services to help improve cognition. PLAN: 1. Multiple sclerosis exacerbation with left lower extremity weakness. DISCUSSED HIS CASE WITH HIS NEUROLOGIST, GINO MENDEZ WHO IS FOLLOWING HIM FOR THE MULTIPLE SCLEROSIS STUDY. DR. JUAN R THOMAS INDICATED THAT THE STUDY DRUG IS CALLED SIPONIMOD , DOSAGE IS 2 MG, 1 TABLET EACH DAY. THE BOTTLE LIST THE PROTOCOL NUMBER WHICH IS [id number]. I CALLED THE [facility] BUT THEY ARE ALREADY GONE FOR THE DAY AND WAS ADVISED BY THE [facility] PHARMACIST FOR DR. DE LA PAZ TO CALL ABOUT PUTTING IN AN ORDER FOR THIS TOMORROW. HIS ALSO BROADEN HIS PRESCRIPTION FOR AMPYRA ER 10 MG Q 12 HOURS. He is having difficulty going from sit to stand. Continue integrated PT and occupational therapy for lower and upper extremity strengthening, respectively. PT and OT to work in concert to address trunk stabilization and balance so the patient can ambulate with as little assistive device and assistance as necessary. Continue methylprednisolone 1 g IV for 1 more day. 2. Cognitive deficits. Speech/Language Pathology will work with the patient to address possible mild dysphagia as well as cognitive dysfunction. PER MY CONVERSATION WITH DR. JUAN R THOMAS, HE INDICATES THAT HE HAS MS RELATED EARLY DEMENTIA 3. Hypertension. Continue carvedilol and losartan. Monitor daily blood pressures. Blood pressure this morning 129/85. 4. History of coronary artery disease with angina. Nitroglycerin 0.4 mg sublingual q.5 minutes p.r.n. anginal-like symptoms. Physical and Occupational Therapy will monitor the patient for anginal-like symptoms during rehab therapy. The patient would also benefit from being monitored with pulse oximeter to make sure O2 saturations do not drop below 93 during therapies. 5. Hypercholesterolemia. Continue Crestor 20 mg daily. 6. Hypoaldosteronemia. Continue fludrocortisone acetate 0.1 mg daily. Will monitor serum sodium levels. Sodium level this morning was 141 7. Urinary urgency-patient does not have a history of being on any medications for benign prostatic hypertrophy. U/A PENDING Plan: 09/05/17 09:37 09/06/17 11:47 09/07/17 17:05 Subjective: HE REPORTS THAT HE IS FATIGUED FROM PHYSICAL THERAPY. HE IS PLEASED WITH HIS PROGRESS THUS FAR. HE DOES REPORT THAT THIS IS THE WORST MS EXACERBATION HE HAS EVER HAD HIS BROUGHT IN HIS STUDY DRUG WHICH WAS IN ON A NON LABELED BOTTLE OTHER THAN THE STUDY DOES ADMISSION. HIS ALSO BROUGHT IN AMPYRA 10 MG Q.12 HOURS Objective: Vital Signs Temp Pulse Resp BP Pulse Ox 36.9 C 60 18 151/105 H 95 09/07/17 06:42 09/07/17 08:33 09/07/17 06:42 09/07/17 08:34 09/07/17 08:31 Laboratory Results 09/05/17 06:00 09/05/17 06:00 09/06/17 09/07/17 09/08/17 05:59 05:59 05:59 Intake Total 1950 2642 550 Output Total 800 3070 625 Balance 1150 -428 -75 Physical Exam - Physical Exam General Appearance: WD/WN, alert, no apparent distress Respiratory: lungs clear, normal breath sounds Cardiac/Chest: No edema Abdomen: non-tender, soft Skin: normal color Neuro/Psych: motor weakness (LEFT LOWER LOWER WEAKNESS. 3-/5 LEFT HIP FLEXORS 2 + 3-/5 LEFT QUADRICEPS, HAMSTRINGS AND TIBIALIS ANTERIOR.), cognition abnormalities ICD10 Worksheet Patient Problems: Problems Problem Status Onset Multiple sclerosis Acute Weakness of left lower extremity Acute
[2017-09-07] MEDS: AMPYRA 10 MG PO SCH (20:44)
[2017-09-08] MEDS: CYCLOBENZAPRINE 10 MG TAB PO PRN (02:53)
[2017-09-08] MEDS ORDERED: ACETAMINOPHEN 500 MG TAB PO ONE (07:45)
[2017-09-08] MEDS: BACLOFEN 10 MG TAB PO SCH ×3 (07:46→21:08)
[2017-09-08] MEDS: FLUoxetine 20 MG CAP PO SCH (07:46)
[2017-09-08] MEDS: ROSUVASTATIN CALCIUM 20 MG TAB PO SCH (07:46)
[2017-09-08] MEDS: FLUDROCORTISONE ACETATE 0.1 MG TAB PO SCH (07:47)
[2017-09-08] MEDS: CARVEDILOL 25 MG TAB PO SCH ×2 (07:47→16:33)
[2017-09-08] MEDS: LOSARTAN POTASSIUM 25 MG TAB PO SCH (07:47)
[2017-09-08] MEDS: AMPYRA 10 MG PO SCH ×2 (07:48→21:08)
[2017-09-08] MEDS: SENNOSIDES/DOCUSATE SODIUM TAB PO SCH ×2 (08:07→21:12)
[2017-09-08] MEDS: [UNRECOGNIZED DRUG - REMARK] PO SCH (14:22)
--- NOTE | 2017-09-08 14:32 | SOAPPROG ---
SOAP Progress Note Assessment/Plan: Assessment: 62-year-old male with recent exacerbation of multiple sclerosis resulting in left lower extremity weakness, gait dysfunction, cognitive deficits (? extent of acute versus chronic) and possible mild dysphagia. He was admitted to [facility] and given 3 days of IV Solu-Medrol. * Multiple sclerosis exacerbation with left lower extremity weakness. MRI without any acute demyelinating lesions. Possible L5-S1 radiculopathy. * He is having difficulty going from sit to stand. Ambulated 100 ft with a front wheeled walker. * Continue PT and OT to work in concert to address trunk stabilization and balance so the patient can ambulate with as little assistive device and assistance as necessary. * Cognitive deficits. Speech/Language Pathology will work with the patient to address possible mild dysphagia as well as cognitive dysfunction. * Hypertension. Continue carvedilol and losartan. * Adding amlodipine 2.5 mg QD starting 09/09/2017 per patient's request. * Monitor for low BP or orthostatic symptoms. * Multiple sclerosis medication. Continue sipinomod, which patient reports is study drug that he has been taking for many years. * History of coronary artery disease with angina. Nitroglycerin 0.4 mg sublingual q.5 minutes p.r.n. anginal-like symptoms. * Dyslipidemia. Continue Crestor 20 mg daily. * Hypoaldosteronism. Continue fludrocortisone acetate 0.1 mg daily. * Urinary urgency/incontinence. * Urinalysis was normal. * May be developing neurogenic bladder, but post-void residual at 187 cc was not enough to merit catheterization. 09/08/17 14:24 Subjective: No complaints. Feeling stronger. No cough or dyspnea. No constipation or diarrhea. He has urinary frequency and urinary incontinence. He reports that he was previously on amlodipine 2.5 mg q.day and says his blood pressure has been too high with systolic in the 150s. Objective: Vital Signs Temp Pulse Resp BP Pulse Ox 36.5 C 62 18 104/69 94 09/08/17 06:30 09/08/17 10:39 09/08/17 06:30 09/08/17 10:39 09/08/17 06:30 Laboratory Results 09/05/17 06:00 09/05/17 06:00 09/07/17 09/08/17 09/09/17 05:59 05:59 05:59 Intake Total 2642 850 948 Output Total 0890 1825 450 [facility] -[phone] Physical Exam - Physical Exam General Appearance: WD/WN, alert, no apparent distress Respiratory: normal breath sounds, No crackles, No rhonchi, No wheezing Cardiac/Chest: regular rate, rhythm, No edema, No diastolic murmur, No systolic murmur Skin: normal color, warm/dry Neuro/Psych: alert, normal mood/affect ICD10 Worksheet Patient Problems: Problems Problem Status Onset Multiple sclerosis Acute Weakness of left lower extremity Acute
[2017-09-09] MEDS: FLUDROCORTISONE ACETATE 0.1 MG TAB PO SCH (08:30)
[2017-09-09] MEDS: FLUoxetine 20 MG CAP PO SCH (08:30)
[2017-09-09] MEDS: BACLOFEN 10 MG TAB PO SCH ×3 (08:30→21:27)
[2017-09-09] MEDS: ROSUVASTATIN CALCIUM 20 MG TAB PO SCH (08:30)
[2017-09-09] MEDS: AMPYRA 10 MG PO SCH ×2 (08:31→22:11)
[2017-09-09] MEDS: LOSARTAN POTASSIUM 25 MG TAB PO SCH (08:34)
[2017-09-09] MEDS: CARVEDILOL 25 MG TAB PO SCH ×2 (08:34→17:16)
[2017-09-09] MEDS: SENNOSIDES/DOCUSATE SODIUM TAB PO SCH ×2 (08:35→22:12)
[2017-09-09] MEDS: [UNRECOGNIZED DRUG - REMARK] PO SCH (08:37)
--- NOTE | 2017-09-09 12:25 | SOAPPROG ---
SOAP Progress Note Assessment/Plan: Assessment: 62-year-old male with recent exacerbation of multiple sclerosis resulting in left lower extremity weakness, gait dysfunction, cognitive deficits (? extent of acute versus chronic) and possible mild dysphagia. He was admitted to [facility] and given 3 days of IV Solu-Medrol. * Multiple sclerosis exacerbation with left lower extremity weakness. MRI without any acute demyelinating lesions. * Initial functional independence measure 62 on 09/09/2017. Incontinent of bowel and bladder. Has urinary urgency and frequency. Standby assist to contact guard assist for bed mobility, transfers with moderate assist. Ambulated 100 ft with minimal assist and front wheeled walker but not safer functional; more functional ambulation 10 ft with minimal assist and front wheeled walker. Upper body dressing requires setup, lower body dressing requires minimal assist. Bathing and bath transfer with minimal assist. Toileting with 2 person assist. * Continue PT and OT with goal of attendant wheelchair mobility and standby assist for walking short distances in the home. Possible L5-S1 radiculopathy. * Discussed with primary care provider Dr. Eunice Arrieta, [phone]. He had a lumbar spine x-ray on 06/05/2017 which showed osteoarthritis with L5- S1 1 disc thinning. * He has never had any other lumbar spine imaging. * He has had increased falls recently. He has also had increased psychological stress as he has had to testify regarding a physical Federal law suit involving airplane and trained travel to [place] approximately 1 month ago. * Cognitive deficits. * Mild to moderate deficits to executive function, attention, problem solving, memory. Decreased safety awareness. * Continue Speech/Language Pathology. * Hypertension. Continue carvedilol and losartan. * Adding amlodipine 2.5 mg QD starting 09/09/2017 per patient's request. * Monitor for low BP or orthostatic symptoms. * Multiple sclerosis medication. Continue sipinomod, which patient reports is study drug that he has been taking for many years. * History of coronary artery disease with angina. Nitroglycerin 0.4 mg sublingual q.5 minutes p.r.n. anginal-like symptoms. * Dyslipidemia. Continue Crestor 20 mg daily. * Hypoaldosteronism. Continue fludrocortisone acetate 0.1 mg daily. * Urinary urgency/incontinence. * Urinalysis was normal. * May be developing neurogenic bladder, but post-void residual at 187 cc was not enough to merit catheterization. Attended staffing, 15 min. Discussed with case management, dietitian, nursing, PT, OT, MAINTENANCE AIDE. He is essentially homebound with IADLs and transportation of the house provided by his . Set tentative discharge date for 09/22/2017. Follow up after discharge with neurologist Dr. Lawrence and primary care provider Dr. Eunice Arrieta.. 09/09/17 17:20 Subjective: Complains of painful spots on his left lower leg. Aware of left lower leg weakness. Sleeping very well. Otherwise without complaint. Objective: Vital Signs Temp Pulse Resp BP Pulse Ox 36.4 C 68 16 132/82 H 95 09/09/17 06:22 09/09/17 08:34 09/09/17 06:22 09/09/17 08:34 09/09/17 06:22 Laboratory Results 09/05/17 06:00 09/05/17 06:00 09/08/17 09/09/17 09/10/17 05:59 05:59 05:59 Intake Total 850 1484 Output Total 1825 950 200 Balance -975 534 -200 - Time Spent With Patient Time Spent With Patient: Greater than 35 min floor time today, including more than 50% of time in coordination of care during staffing meeting, and counseling patient. Physical Exam - Physical Exam General Appearance: WD/WN, alert, no apparent distress, obese Respiratory: No respiratory distress, No accessory muscle use Cardiac/Chest: No edema Skin: normal color, warm/dry, other (Left lower leg with several reddish brownish macules approximately 2 mm each, nonblanching, over distal leg and dorsal foot.) Neuro/Psych: alert, normal mood/affect, oriented x 3 ICD10 Worksheet Patient Problems: Problems Problem Status Onset Multiple sclerosis Acute Weakness of left lower extremity Acute
[2017-09-10] MEDS: CARVEDILOL 25 MG TAB PO SCH ×2 (08:40→17:49)
[2017-09-10] MEDS: ROSUVASTATIN CALCIUM 20 MG TAB PO SCH (08:40)
[2017-09-10] MEDS: FLUoxetine 20 MG CAP PO SCH (08:41)
[2017-09-10] MEDS: SENNOSIDES/DOCUSATE SODIUM TAB PO SCH ×2 (08:41→21:20)
[2017-09-10] MEDS: FLUDROCORTISONE ACETATE 0.1 MG TAB PO SCH (08:41)
[2017-09-10] MEDS: LOSARTAN POTASSIUM 25 MG TAB PO SCH (08:41)
[2017-09-10] MEDS: BACLOFEN 10 MG TAB PO SCH ×3 (08:41→21:18)
[2017-09-10] MEDS: AMPYRA 10 MG PO SCH ×2 (08:42→21:18)
[2017-09-10] MEDS: [UNRECOGNIZED DRUG - REMARK] PO SCH (08:42)
--- NOTE | 2017-09-10 14:28 | SOAPPROG ---
SOAP Progress Note Assessment/Plan: Assessment: 62-year-old male with recent exacerbation of multiple sclerosis resulting in left lower extremity weakness, gait dysfunction, cognitive deficits (? extent of acute versus chronic) and possible mild dysphagia. He was admitted to [facility] and given 3 days of IV Solu-Medrol. * Multiple sclerosis exacerbation with left lower extremity weakness. MRI without any acute demyelinating lesions but large burden of chronic lesions. * Initial functional independence measure 62 on 09/09/2017. Incontinent of bowel and bladder. Has urinary urgency and frequency. Standby assist to contact guard assist for bed mobility, transfers with moderate assist. Ambulated 100 ft with minimal assist and front wheeled walker but not safe or functional; more functional ambulation 10 ft with minimal assist and front wheeled walker. Upper body dressing requires setup, lower body dressing requires minimal assist. Bathing and bath transfer with minimal assist. Toileting with 2 person assist. * Continue PT and OT with goal of attendant wheelchair mobility and standby assist for walking short distances in the home. Possible L5-S1 radiculopathy. * Discussed with primary care provider Dr. Eunice Arrieta, . He had a lumbar spine x-ray on 06/05/2017 which showed osteoarthritis with L5- S1 1 disc thinning. * He has never had any other lumbar spine imaging. * He has had increased falls recently. He has also had increased psychological stress as he has had to testify regarding a physical Federal law suit involving airplane and trained travel to [place] approximately 1 month ago. * Cognitive deficits. * Mild to moderate deficits to executive function, attention, problem solving, memory. Decreased safety awareness. * Continue Speech/Language Pathology. * Hypertension. Continue carvedilol and losartan. * Adding amlodipine 2.5 mg QD starting 09/09/2017 per patient's request. * Monitor for low BP or orthostatic symptoms. * Multiple sclerosis medication. Continue sipinomod, which patient reports is study drug that he has been taking for many years. Continue dalfampridine. * History of coronary artery disease with angina. Nitroglycerin 0.4 mg sublingual q.5 minutes p.r.n. anginal-like symptoms. Has been asymptomatic throughout his stay. * Dyslipidemia. Continue Crestor 20 mg daily. * Hypoaldosteronism. Continue fludrocortisone acetate 0.1 mg daily. * Urinary urgency/incontinence. * Urinalysis was normal. * May be developing neurogenic bladder, but post-void residual at 187 cc was not enough to merit catheterization. He is essentially homebound with IADLs and transportation of the house provided by his . Tentative discharge date of 09/22/2017. Follow up after discharge with neurologist Dr. Lawrence and primary care provider Dr. Eunice Arrieta.. 09/10/17 14:25 Subjective: No complaints. Slept well. Not in pain. No fevers or chills, no cough or dyspnea. Has fatigue after working with therapies. Objective: Vital Signs Temp Pulse Resp BP Pulse Ox 36.4 C 68 18 150/88 H 94 09/10/17 08:00 09/10/17 08:40 09/10/17 08:00 09/10/17 08:41 09/10/17 08:00 Laboratory Results 09/05/17 06:00 09/05/17 06:00 09/09/17 09/10/17 09/11/17 05:59 05:59 05:59 Intake Total 1484 240 772 Output Total 950 1675 200 Balance 534 -9331 572 Physical Exam - Physical Exam General Appearance: WD/WN, alert, no apparent distress Respiratory: normal breath sounds, No crackles, No rhonchi, No wheezing Cardiac/Chest: regular rate, rhythm, No diastolic murmur, No systolic murmur Skin: normal color, warm/dry Neuro/Psych: alert, normal mood/affect, abnormal gait (Ambulating with front wheeled walker, assist by PT to maintain quadriceps and gluteal contraction to stand straight on left leg and takes short steps with right leg.), motor weakness ICD10 Worksheet Patient Problems: Problems Problem Status Onset Multiple sclerosis Acute Weakness of left lower extremity Acute
[2017-09-11] MEDS: ROSUVASTATIN CALCIUM 20 MG TAB PO SCH (08:12)
[2017-09-11] MEDS: LOSARTAN POTASSIUM 25 MG TAB PO SCH (08:12)
[2017-09-11] MEDS: BACLOFEN 10 MG TAB PO SCH ×3 (08:12→21:13)
[2017-09-11] MEDS: CARVEDILOL 25 MG TAB PO SCH ×2 (08:12→18:43)
[2017-09-11] MEDS: FLUDROCORTISONE ACETATE 0.1 MG TAB PO SCH (08:12)
[2017-09-11] MEDS: FLUoxetine 20 MG CAP PO SCH (08:12)
[2017-09-11] MEDS: SENNOSIDES/DOCUSATE SODIUM TAB PO SCH ×2 (08:13→21:13)
[2017-09-11] MEDS: [UNRECOGNIZED DRUG - REMARK] PO SCH (08:17)
[2017-09-11] MEDS: AMPYRA 10 MG PO SCH ×2 (08:19→21:12)
--- NOTE | 2017-09-11 12:22 | SOAPPROG ---
SOAP Progress Note Assessment/Plan: Assessment: 62-year-old male with recent exacerbation of multiple sclerosis resulting in left lower extremity weakness, gait dysfunction, cognitive deficits (? extent of acute versus chronic) and possible mild dysphagia. He was admitted to [facility] and given 3 days of IV Solu-Medrol. * Multiple sclerosis exacerbation with left lower extremity weakness. MRI without any acute demyelinating lesions but large burden of chronic lesions. * Initial functional independence measure 62 on 09/09/2017. Incontinent of bowel and bladder. Has urinary urgency and frequency. Standby assist to contact guard assist for bed mobility, transfers with moderate assist. Ambulated 10 ft with minimal assist and front wheeled walker. Upper body dressing requires setup, lower body dressing requires minimal assist. Bathing and bath transfer with minimal assist. Toileting with 2 person assist. * Continue PT and OT with goal of independent wheelchair mobility and standby assist for walking short distances in the home. Possible L5-S1 radiculopathy. * Discussed with primary care provider Dr. Eunice Arrieta, [phone]. He had a lumbar spine x-ray on 06/05/2017 which showed osteoarthritis with L5- S1 1 disc thinning. Per hospital H&P he had recent visit with a spine surgeon at [facility] and was advised that his leg weakness was not related to spinal disease. * He has had increased falls recently. He has also had increased psychological stress as he has had to testify regarding a Federal law suit involving airplane and train travel to [place] approximately 1 month ago. * Cognitive deficits. * Mild to moderate deficits to executive function, attention, problem solving, memory. Decreased safety awareness. * Continue Speech/Language Pathology. * Hypertension. Continue carvedilol and losartan. * Added amlodipine 2.5 mg QD starting 09/09/2017 per patient's request. * Monitor for low BP or orthostatic symptoms. * Multiple sclerosis medication. Continue sipinomod, which patient reports is study drug that he has been taking for many years. Continue dalfampridine. * History of coronary artery disease with angina. Nitroglycerin 0.4 mg sublingual q.5 minutes p.r.n. anginal-like symptoms. Has been asymptomatic throughout his stay. * Occasional hypoxemia but no signs or symptoms of CHF. * Dyslipidemia. Continue Crestor 20 mg daily. * Hypoaldosteronism. Continue fludrocortisone acetate 0.1 mg daily. * Urinary urgency/incontinence. * Urinalysis was normal. * May be developing neurogenic bladder, but post-void residual at 187 cc was not enough to merit catheterization. He is essentially homebound with IADLs and transportation of the house provided by his . Tentative discharge date of 09/22/2017. Follow up after discharge with neurologist Dr. Lawrence and primary care provider Dr. Eunice Arrieta.. 09/11/17 12:17 Subjective: No complaints. Sleeping well. Not in pain. No cough or dyspnea, no fevers or chills. Objective: Vital Signs Temp Pulse Resp BP Pulse Ox 36.6 C 63 16 152/93 H 97 09/11/17 06:35 09/11/17 06:35 09/11/17 06:35 09/11/17 06:35 09/11/17 06:35 Laboratory Results 09/05/17 06:00 09/05/17 06:00 09/10/17 09/11/17 09/12/17 05:59 05:59 05:59 Intake Total 240 1012 474 Output Total 1675 900 Balance -1435 112 474 Physical Exam - Physical Exam General Appearance: WD/WN, alert, no apparent distress Respiratory: normal breath sounds, No crackles, No rhonchi, No wheezing Cardiac/Chest: regular rate, rhythm, No edema, No JVD, No diastolic murmur, No systolic murmur Skin: normal color, warm/dry Neuro/Psych: alert, normal mood/affect, oriented x 3 ICD10 Worksheet Patient Problems: Problems Problem Status Onset Multiple sclerosis Acute Weakness of left lower extremity Acute
[2017-09-12] MEDS: AMPYRA 10 MG PO SCH ×2 (08:54→20:58)
[2017-09-12] MEDS: [UNRECOGNIZED DRUG - REMARK] PO SCH (08:55)
[2017-09-12] MEDS: CARVEDILOL 25 MG TAB PO SCH ×2 (08:56→17:35)
[2017-09-12] MEDS: ROSUVASTATIN CALCIUM 20 MG TAB PO SCH (08:56)
[2017-09-12] MEDS: FLUDROCORTISONE ACETATE 0.1 MG TAB PO SCH (08:56)
[2017-09-12] MEDS: BACLOFEN 10 MG TAB PO SCH ×3 (08:56→20:58)
[2017-09-12] MEDS: FLUoxetine 20 MG CAP PO SCH (08:57)
[2017-09-12] MEDS: SENNOSIDES/DOCUSATE SODIUM TAB PO SCH ×2 (08:58→20:58)
[2017-09-12] MEDS: LOSARTAN POTASSIUM 25 MG TAB PO SCH (08:58)
--- NOTE | 2017-09-12 10:42 | SOAPPROG ---
SOAP Progress Note Assessment/Plan: A/P: 62-year-old male with recent exacerbation of multiple sclerosis resulting in left lower extremity weakness, gait dysfunction, cognitive deficits (? extent of acute versus chronic) and possible mild dysphagia. He was admitted to [facility] and given 3 days of IV Solu-Medrol. * Multiple sclerosis exacerbation with left lower extremity weakness. MRI without any acute demyelinating lesions but large burden of chronic lesions. * Initial functional independence measure 62 on 09/09/2017. Incontinent of bowel and bladder. Has urinary urgency and frequency. Standby assist to contact guard assist for bed mobility, transfers with moderate assist. Ambulated 10 ft with minimal assist and front wheeled walker. Upper body dressing requires setup, lower body dressing requires minimal assist. Bathing and bath transfer with minimal assist. Toileting with 2 person assist. * Continue PT and OT with goal of independent wheelchair mobility and standby assist for walking short distances in the home. Possible L5-S1 radiculopathy. * Discussed with primary care provider Dr. Eunice Arrieta, . He had a lumbar spine x-ray on 06/05/2017 which showed osteoarthritis with L5- S1 1 disc thinning. Per hospital H&P he had recent visit with a spine surgeon at [facility] and was advised that his leg weakness was not related to spinal disease. * He has had increased falls recently. He has also had increased psychological stress as he has had to testify regarding a Federal law suit involving airplane and train travel to [place] approximately 1 month ago. * Cognitive deficits. * Mild to moderate deficits to executive function, attention, problem solving, memory. Decreased safety awareness. * Continue Speech/Language Pathology. * Hypertension. Continue carvedilol and losartan. * Amlodipine 2.5 mg QD starting 09/09/2017 per patient's request. * Monitor for low BP or orthostatic symptoms. * Multiple sclerosis medication. Continue sipinomod, which patient reports is study drug that he has been taking for many years. Continue dalfampridine. * History of coronary artery disease with angina. Nitroglycerin 0.4 mg sublingual q.5 minutes p.r.n. anginal-like symptoms. Has been asymptomatic throughout his stay. * Occasional hypoxemia but no signs or symptoms of CHF. * Dyslipidemia. Continue Crestor 20 mg daily. * Hypoaldosteronism. Continue fludrocortisone acetate 0.1 mg daily. * Urinary urgency/incontinence. * Urinalysis was normal. * May be developing neurogenic bladder, but post-void residual at 187 cc was not enough to merit catheterization. He is essentially homebound with IADLs and transportation of the house provided by his . Tentative discharge date of 09/22/2017. Follow up after discharge with neurologist Dr. Lawrence and primary care provider Dr. Eunice Arrieta. Today's Plan: pt without new concerns today - we did discuss the importance of not taking meds/supplements that are not prescribed by our facility or that have not been cleared by pharmacy. He has an empty bottle of edible gummies on his desk. Continue current reb 09/12/17 10:38 Subjective: Reported that not having significant issues this morning although was logan sad that had to wake up so early on a thursday. He was able to discuss the new changes he had and was happy that had no new changes on the MRI but it is frustrating to have physical changes even without new lesions. no fevers/chills , no sob, no cp Objective: Vital Signs Temp Pulse Resp BP Pulse Ox 36.7 C 58 L 15 123/75 H 95 09/12/17 07:34 09/12/17 08:56 09/12/17 07:34 09/12/17 08:58 09/12/17 07:34 Laboratory Results 09/05/17 06:00 09/05/17 06:00 09/11/17 09/12/17 09/13/17 05:59 05:59 05:59 Intake Total 1012 710 620 Output Total 900 1075 Balance 112 -216 620 Physical Exam - Physical Exam General Appearance: alert, no apparent distress Respiratory: normal breath sounds Cardiac/Chest: regular rate, rhythm Abdomen: other (mildly distended but soft, obese) Neuro/Psych: alert, normal mood/affect ICD10 Worksheet Patient Problems: Problems Problem Status Onset Multiple sclerosis Acute Weakness of left lower extremity Acute
[2017-09-13] MEDS: AMPYRA 10 MG PO SCH ×2 (08:02→20:34)
[2017-09-13] MEDS: [UNRECOGNIZED DRUG - REMARK] PO SCH (08:03)
[2017-09-13] MEDS: ROSUVASTATIN CALCIUM 20 MG TAB PO SCH (08:03)
[2017-09-13] MEDS: FLUoxetine 20 MG CAP PO SCH (08:04)
[2017-09-13] MEDS: LOSARTAN POTASSIUM 25 MG TAB PO SCH (08:04)
[2017-09-13] MEDS: CARVEDILOL 25 MG TAB PO SCH ×2 (08:04→16:59)
[2017-09-13] MEDS: SENNOSIDES/DOCUSATE SODIUM TAB PO SCH ×2 (08:04→20:33)
[2017-09-13] MEDS: FLUDROCORTISONE ACETATE 0.1 MG TAB PO SCH (08:05)
[2017-09-13] MEDS: BACLOFEN 10 MG TAB PO SCH ×3 (09:04→20:33)
--- NOTE | 2017-09-13 09:52 | SOAPPROG ---
SOAP Progress Note Assessment/Plan: A/P: 62-year-old male with recent exacerbation of multiple sclerosis resulting in left lower extremity weakness, gait dysfunction, cognitive deficits (? extent of acute versus chronic) and possible mild dysphagia. He was admitted to [facility] and given 3 days of IV Solu-Medrol. * Multiple sclerosis exacerbation with left lower extremity weakness. MRI without any acute demyelinating lesions but large burden of chronic lesions. * Initial functional independence measure 62 on 09/09/2017. Incontinent of bowel and bladder. Has urinary urgency and frequency. Standby assist to contact guard assist for bed mobility, transfers with moderate assist. Ambulated 10 ft with minimal assist and front wheeled walker. Upper body dressing requires setup, lower body dressing requires minimal assist. Bathing and bath transfer with minimal assist. Toileting with 2 person assist. * Continue PT and OT with goal of independent wheelchair mobility and standby assist for walking short distances in the home. Possible L5-S1 radiculopathy. * Discussed with primary care provider Dr. Eunice Arrieta, [phone]. He had a lumbar spine x-ray on 06/05/2017 which showed osteoarthritis with L5- S1 1 disc thinning. Per hospital H&P he had recent visit with a spine surgeon at [facility] and was advised that his leg weakness was not related to spinal disease. * He has had increased falls recently. He has also had increased psychological stress as he has had to testify regarding a Federal law suit involving airplane and train travel to [place] approximately 1 month ago. * Cognitive deficits. * Mild to moderate deficits to executive function, attention, problem solving, memory. Decreased safety awareness. * Continue Speech/Language Pathology. * Hypertension. Continue carvedilol and losartan. * Amlodipine 2.5 mg QD starting 09/09/2017 per patient's request. * Monitor for low BP or orthostatic symptoms. * Multiple sclerosis medication. Continue sipinomod, which patient reports is study drug that he has been taking for many years. Continue dalfampridine. * History of coronary artery disease with angina. Nitroglycerin 0.4 mg sublingual q.5 minutes p.r.n. anginal-like symptoms. Has been asymptomatic throughout his stay. * Occasional hypoxemia but no signs or symptoms of CHF. * Dyslipidemia. Continue Crestor 20 mg daily. * Hypoaldosteronism. Continue fludrocortisone acetate 0.1 mg daily. * Urinary urgency/incontinence. * Urinalysis was normal. * May be developing neurogenic bladder, but post-void residual at 187 cc was not enough to merit catheterization. He is essentially homebound with IADLs and transportation of the house provided by his . Tentative discharge date of 09/22/2017. Follow up after discharge with neurologist Dr. Lawrence and primary care provider Dr. Eunice Arrieta. Today's Plan: Continue current rehab plan - Pt making ongoing progress working with therapists. He overall continues to fell better and more capable. no new pain other discomfort. 09/13/17 09:50 Subjective: Feeling well - no CP, SOB, abdominal pain. Pt reports no new changes neurologically. Enjoyed a visit from his family yesterday including his dogs. Objective: Vital Signs Temp Pulse Resp BP Pulse Ox 36.6 C 59 L 15 140/75 H 93 09/13/17 07:33 09/13/17 07:33 09/13/17 07:33 09/13/17 08:04 09/13/17 07:33 Laboratory Results 09/05/17 06:00 09/05/17 06:00 09/12/17 09/13/17 09/14/17 05:59 05:59 05:59 Intake Total 710 1200 504 Output Total 1075 675 200 Balance -365 525 304 Physical Exam - Physical Exam General Appearance: no apparent distress Respiratory: normal breath sounds Cardiac/Chest: regular rate, rhythm Abdomen: non-tender, soft Neuro/Psych: alert, normal mood/affect ICD10 Worksheet Patient Problems: Problems Problem Status Onset Multiple sclerosis Acute Weakness of left lower extremity Acute
[2017-09-14] MEDS: CARVEDILOL 25 MG TAB PO SCH ×2 (08:36→17:37)
[2017-09-14] MEDS: FLUoxetine 20 MG CAP PO SCH (08:36)
[2017-09-14] MEDS: LOSARTAN POTASSIUM 25 MG TAB PO SCH (08:36)
[2017-09-14] MEDS: FLUDROCORTISONE ACETATE 0.1 MG TAB PO SCH (08:36)
[2017-09-14] MEDS: ROSUVASTATIN CALCIUM 20 MG TAB PO SCH (08:37)
[2017-09-14] MEDS: SENNOSIDES/DOCUSATE SODIUM TAB PO SCH ×2 (08:37→20:41)
[2017-09-14] MEDS: AMPYRA 10 MG PO SCH ×2 (08:38→22:05)
[2017-09-14] MEDS: [UNRECOGNIZED DRUG - REMARK] PO SCH (08:45)
[2017-09-14] MEDS: BACLOFEN 10 MG TAB PO SCH ×3 (09:28→20:41)
--- NOTE | 2017-09-14 12:03 | SOAPPROG ---
SOAP Progress Note Assessment/Plan: Assessment: 62-year-old male with recent exacerbation of multiple sclerosis resulting in left lower extremity weakness, gait dysfunction, cognitive deficits (? extent of acute versus chronic) and possible mild dysphagia. He was admitted to [facility] and given 3 days of IV Solu-Medrol. * Multiple sclerosis exacerbation with left lower extremity weakness. MRI without any acute demyelinating lesions but large burden of chronic lesions. * Initial functional independence measure 62 on 09/09/2017. Incontinent of bowel and bladder, improving. Standby assist to contact guard assist for bed mobility, transfers with moderate assist. Ambulated 10 ft with minimal assist and front wheeled walker. Upper body dressing requires setup, lower body dressing requires minimal assist. Bathing and bath transfer with minimal assist. Toileting with 2 person assist. * Continue PT and OT with goal of independent wheelchair mobility and standby assist for walking short distances in the home. Possible L5-S1 radiculopathy. * Discussed with primary care provider Dr. Eunice Arrieta, . He had a lumbar spine x-ray on 06/05/2017 which showed osteoarthritis with L5- S1 1 disc thinning. Per hospital H&P he had recent visit with a spine surgeon at [facility] and was advised that his leg weakness was not related to spinal disease. * He has had increased falls recently. He has also had increased psychological stress as he has had to testify regarding a Federal law suit involving airplane and train travel to [place] approximately 1 month ago. * Cognitive deficits. * Mild to moderate deficits to executive function, attention, problem solving, memory. Decreased safety awareness. * Continue Speech/Language Pathology. * Hypertension. Continue carvedilol and losartan. * Added amlodipine 2.5 mg QD starting 09/09/2017 per patient's request. * Monitor for low BP or orthostatic symptoms. * Multiple sclerosis medication. Continue sipinomod, which patient reports is study drug that he has been taking for many years. Continue dalfampridine. * History of coronary artery disease with angina. Nitroglycerin 0.4 mg sublingual q.5 minutes p.r.n. anginal-like symptoms. Has been asymptomatic throughout his stay. * Occasional hypoxemia but no signs or symptoms of CHF. * Dyslipidemia. Continue Crestor 20 mg daily. * Hypoaldosteronism. Continue fludrocortisone acetate 0.1 mg daily. * Urinary urgency/incontinence. * Urinalysis was normal. * May be developing neurogenic bladder, but post-void residual at 187 cc was not enough to merit catheterization. He is essentially homebound with IADLs and transportation of the house provided by his . Tentative discharge date of 09/22/2017. Follow up after discharge with neurologist Dr. Lawrence and primary care provider Dr. Eunice Arrieta.. This patient needs a wheelchair. He has a mobility limitation that significantly impairs 1 or more mobility related ADLs in the home. The functional mobility deficit cannot be resolved with a walker or cane. His home is adequate for accessing rooms, maneuvering space, and surfaces. The wheelchair will significantly improve the ability participate in mobility related ADLs the patient will use it regularly. He has not expressed and unwillingness to use the wheelchair. He has sufficient physical and mental ability to safely use the wheelchair. He needs anti roll back device (anti- tippers) because he self propels and needs the device because of ramps. 09/14/17 14:10 Subjective: No complaints. Reports he was using THC gummies because they took care of his episodic whole-body shaking. He says he was treated for this previously with Symmetrel which she felt was a depressant. Nurses have removed the gummies from his room and he understands that is hospital palsy that he not use THC while he is here. Denies fevers, chills, cough, dyspnea. Sleeping well. Objective: Vital Signs Temp Pulse Resp BP Pulse Ox 36.6 C 60 16 116/62 91 L 09/14/17 08:00 09/14/17 08:36 09/14/17 08:00 09/14/17 08:36 09/14/17 08:00 Laboratory Results 09/05/17 06:00 09/05/17 06:00 09/13/17 09/14/17 09/15/17 05:59 05:59 05:59 Intake Total 1200 1738 550 Output Total 675 1025 Balance 525 713 550 Physical Exam - Physical Exam General Appearance: WD/WN, alert, no apparent distress, obese Respiratory: No respiratory distress, No accessory muscle use Skin: normal color, warm/dry Neuro/Psych: alert, normal mood/affect, oriented x 3 ICD10 Worksheet Patient Problems: Problems Problem Status Onset Multiple sclerosis Acute Weakness of left lower extremity Acute
--- NOTE | 2017-09-15 08:30 | SOAPPROG ---
SOAP Progress Note Assessment/Plan: 62-year-old male with recent exacerbation of multiple sclerosis (secondary progressive per his report) resulting in left lower extremity weakness, gait dysfunction, cognitive deficits (? extent of acute versus chronic) and possible mild dysphagia. He was admitted to [facility] and given 3 days of IV Solu-Medrol. Today's update: Making good neurological progress and rehabilitation progress. AFO is ordered and pending, unclear what type will ultimately be delivered based on the notes. Training and monitoring of skin integrity and mechanics once delivered. Checking postvoid residuals x3 as he had an elevated 1 in the past and has new urinary urgency. Likely at high risk for high-pressure bladder , recommend follow up with Urology in Physical Medicine and Rehabilitation for ongoing management after discharge. A total of 25 min was spent on the floor in the care of the patient, the majority of which was spent counseling and coordination of care regarding follow -up and bladder management. * Multiple sclerosis exacerbation with left lower extremity weakness. MRI without any acute demyelinating lesions but large burden of chronic lesions. * Initial functional independence measure 62 on 09/09/2017. Incontinent of bowel and bladder, improving. Standby assist to contact guard assist for bed mobility, transfers with moderate assist. Ambulated 10 ft with minimal assist and front wheeled walker. Upper body dressing requires setup, lower body dressing requires minimal assist. Bathing and bath transfer with minimal assist. Toileting with 2 person assist. * Continue PT and OT with goal of independent wheelchair mobility and standby assist for walking short distances in the home. * Ankle-foot orthosis was ordered by Dr. Tariq, unsure the parameters. Monitor and training after delivery * Follow-up with Physical Medicine and Rehabilitation as his neurologist primarily manages medications. Possible L5-S1 radiculopathy. * primary care provider Dr. Eunice Arrieta, [phone]. He had a lumbar spine x-ray on 06/05/2017 which showed osteoarthritis with L5-S1 1 disc thinning. Per hospital H&P he had recent visit with a spine surgeon at [facility] and was advised that his leg weakness was not related to spinal disease. * He has had increased falls recently. He has also had increased psychological stress as he has had to testify regarding a Federal law suit involving airplane and train travel to [place] approximately 1 month ago. * Cognitive deficits. * Mild to moderate deficits to executive function, attention, problem solving, memory. Decreased safety awareness. * Continue Speech/Language Pathology. * Hypertension. Continue carvedilol and losartan. * Added amlodipine 2.5 mg QD starting 09/09/2017 per patient's request. * Monitor for low BP or orthostatic symptoms. * Multiple sclerosis medication. Continue sipinomod, which patient reports is study drug that he has been taking for many years. Continue dalfampridine. * History of coronary artery disease with angina. Nitroglycerin 0.4 mg sublingual q.5 minutes p.r.n. anginal-like symptoms. Has been asymptomatic throughout his stay. * Occasional hypoxemia but no signs or symptoms of CHF. * Dyslipidemia. Continue Crestor 20 mg daily. * Hypoaldosteronism. Continue fludrocortisone acetate 0.1 mg daily. * Urinary urgency/incontinence. Likely component of neurogenic bladder, new since exacerbation. Unclear if has related bowel symptoms * Urinalysis was normal. * Checking PVR x 3 * Follow up with physiatry and urology Home with family. Tentative discharge date of 09/22/2017. Follow up after discharge with neurologist Dr. Lawrence and primary care provider Dr. Eunice Arrieta. Recommend follow up with Urology for urodynamics and follow up with Dr. Perez for physiatric management of impairments. 09/15/17 08:25 09/15/17 08:31 Subjective: Chief complaint: Urinary frequency No acute events overnight. Patient continues to have urinary frequency, UA has been negative. Symptoms are new since this exacerbation. 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 AFO has been ordered but he does not know what kind. He has not had bladder issues in the past and has not worked with Urology and does not have a rehab physician. No new concerns today. Denies any new shortness of breath or chest pain, no new numbness, tingling, or weakness. Objective: Vital Signs Temp Pulse Resp BP Pulse Ox 36.4 C 55 L 16 128/77 H 94 09/15/17 06:48 09/15/17 06:48 09/15/17 06:48 09/15/17 06:48 09/15/17 06:48 Laboratory Results 09/05/17 06:00 09/05/17 06:00 09/14/17 09/15/17 09/16/17 05:59 05:59 05:59 Intake Total 2011 6115 Output Total 1027 225 Balance 713 1100 Physical Exam - Physical Exam General Appearance: alert, no apparent distress Respiratory: No respiratory distress, No accessory muscle use Cardiac/Chest: normal peripheral pulses, regular rate, rhythm Skin: normal color, warm/dry, No cyanosis, No diaphoresis Extremities: No pedal edema, No swelling Neuro/Psych: alert, normal mood/affect, other (Slightly dysarthric speech, left lower extremity weakness greater than right lower extremity weakness, less than antigravity on his ankle dorsiflexors on the left side with an AFO in place. Temporary AFO. Knee extension on the left leg is less than antigravity as well. ) ICD10 Worksheet Patient Problems: Problems Problem Status Onset Multiple sclerosis Acute Weakness of left lower extremity Acute
[2017-09-15] MEDS: CARVEDILOL 25 MG TAB PO SCH ×2 (09:37→17:49)
[2017-09-15] MEDS: BACLOFEN 10 MG TAB PO SCH ×3 (09:38→20:30)
[2017-09-15] MEDS: FLUoxetine 20 MG CAP PO SCH (09:39)
[2017-09-15] MEDS: LOSARTAN POTASSIUM 25 MG TAB PO SCH (09:40)
[2017-09-15] MEDS: AMPYRA 10 MG PO SCH ×2 (09:41→20:29)
[2017-09-15] MEDS: SENNOSIDES/DOCUSATE SODIUM TAB PO SCH ×2 (09:43→20:30)
[2017-09-15] MEDS: ROSUVASTATIN CALCIUM 20 MG TAB PO SCH (09:43)
[2017-09-15] MEDS: FLUDROCORTISONE ACETATE 0.1 MG TAB PO SCH (09:44)
[2017-09-15] MEDS: [UNRECOGNIZED DRUG - REMARK] PO SCH (11:14)
[2017-09-16] MEDS: CARVEDILOL 25 MG TAB PO SCH ×2 (09:08→18:41)
[2017-09-16] MEDS: BACLOFEN 10 MG TAB PO SCH ×3 (09:34→20:49)
[2017-09-16] MEDS: FLUDROCORTISONE ACETATE 0.1 MG TAB PO SCH (09:34)
[2017-09-16] MEDS: FLUoxetine 20 MG CAP PO SCH (09:34)
[2017-09-16] MEDS: LOSARTAN POTASSIUM 25 MG TAB PO SCH (09:34)
[2017-09-16] MEDS: ROSUVASTATIN CALCIUM 20 MG TAB PO SCH (09:35)
[2017-09-16] MEDS: SENNOSIDES/DOCUSATE SODIUM TAB PO SCH ×2 (09:35→20:45)
[2017-09-16] MEDS: [UNRECOGNIZED DRUG - REMARK] PO SCH (09:35)
[2017-09-16] MEDS: AMPYRA 10 MG PO SCH ×2 (09:36→20:50)
--- NOTE | 2017-09-16 09:40 | SOAPPROG ---
SOAP Progress Note Assessment/Plan: Assessment: 62-year-old male with recent exacerbation of multiple sclerosis resulting in left lower extremity weakness, gait dysfunction, cognitive deficits (? extent of acute versus chronic) and possible mild dysphagia. He was admitted to [facility] and given 3 days of IV Solu-Medrol. * Multiple sclerosis exacerbation with left lower extremity weakness. MRI without any acute demyelinating lesions but large burden of chronic lesions. * Initial functional independence measure 62 on 09/09/2017; increased to 85 as of 09/16/2017. Requires cues for technique with transfers. Ambulates 15-30 feet minimal assist, left AFO, front wheeled walker. Working on platform steps as he is 2 platform steps to enter his house. PT concerned about safety. Need structure and cues for ADLs. Inconsistent, especially with fatigue in the evenings * Continue PT and OT with goal of independent wheelchair mobility and standby assist for walking short distances in the home. Possible L5-S1 radiculopathy. * Discussed with primary care provider Dr. Eunice Arrieta, . He had a lumbar spine x-ray on 06/05/2017 which showed osteoarthritis with L5- S1 1 disc thinning. Per hospital H&P he had recent visit with a spine surgeon at [facility] and was advised that his leg weakness was not related to spinal disease. * He has had increased falls recently. He has also had increased psychological stress as he has had to testify regarding a Federal law suit involving airplane and train travel to [place] approximately 1 month ago. * Cognitive deficits. * 26/30 on the Pillo cognitive assessment, not consistent with dementia. Has decreased safety awareness and insight, has deficit to executive function. * Continue Speech/Language Pathology. * Hypertension. Continue carvedilol and losartan. * Added amlodipine 2.5 mg QD starting 09/09/2017 per patient's request. * Monitor for low BP or orthostatic symptoms. * Multiple sclerosis medication. Continue sipinomod, which patient reports is study drug that he has been taking for many years. Continue dalfampridine. * History of coronary artery disease with angina. Nitroglycerin 0.4 mg sublingual q.5 minutes p.r.n. anginal-like symptoms. Has been asymptomatic throughout his stay. * Occasional hypoxemia but no signs or symptoms of CHF. * Dyslipidemia. Continue Crestor 20 mg daily. * Hypoaldosteronism. Continue fludrocortisone acetate 0.1 mg daily. * Urinary urgency/incontinence. * Urinalysis was normal. * May be developing neurogenic bladder, but post-void residual ranging from 79 cc to 129 cc yesterday 09/15/2017. Attended staffing, 15 min. 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 Significant concerns regarding safety. Will need wheelchair and house needs to be wheelchair accessible. He is essentially homebound with IADLs and transportation of the house provided by his . Tentative discharge date of 09/23/2017. Follow up after discharge with neurologist Dr. Lawrence and primary care provider Dr. Eunice Arrieta.. This patient needs a wheelchair. He has a mobility limitation that significantly impairs 1 or more mobility related ADLs in the home. The functional mobility deficit cannot be resolved with a walker or cane. His home is adequate for accessing rooms, maneuvering space, and surfaces. The wheelchair will significantly improve the ability participate in mobility related ADLs the patient will use it regularly. He has not expressed and unwillingness to use the wheelchair. He has sufficient physical and mental ability to safely use the wheelchair. He needs anti roll back device (anti- tippers) because he self propels and needs the device because of ramps. 09/16/17 11:19 Subjective: No complaints. Not in pain. Sleeping well. Working with therapy. Objective: Vital Signs Temp Pulse Resp BP Pulse Ox 36.6 C 62 14 121/71 H 91 L 09/16/17 08:00 09/16/17 09:08 09/16/17 08:00 09/16/17 09:34 09/16/17 08:00 Laboratory Results 09/05/17 06:00 09/05/17 06:00 09/15/17 09/16/17 09/17/17 05:59 05:59 05:59 Intake Total 1325 1406 Output Total 992 4864 Balance 1100 -348 - Time Spent With Patient Time Spent With Patient: Greater than 35 min floor time today, including more than 50% of time in coordination of care during staffing meeting, and counseling patient. Physical Exam - Physical Exam General Appearance: WD/WN, alert, no apparent distress, obese Respiratory: No respiratory distress, No accessory muscle use Skin: normal color, warm/dry Neuro/Psych: alert, normal mood/affect, oriented x 3, abnormal gait (Ambulates with front wheeled walker, reduced forward swing of right lower extremity, wearing left AFO. Ascended single curb step with considerable assistance of 2 physical therapists and cuing for position and technique.) ICD10 Worksheet Patient Problems: Problems Problem Status Onset Multiple sclerosis Acute Weakness of left lower extremity Acute
[2017-09-17] MEDS: CARVEDILOL 25 MG TAB PO SCH ×2 (08:57→18:13)
[2017-09-17] MEDS: LOSARTAN POTASSIUM 25 MG TAB PO SCH (08:58)
[2017-09-17] MEDS: BACLOFEN 10 MG TAB PO SCH ×3 (08:58→21:10)
[2017-09-17] MEDS: FLUoxetine 20 MG CAP PO SCH (08:58)
[2017-09-17] MEDS: FLUDROCORTISONE ACETATE 0.1 MG TAB PO SCH (08:58)
[2017-09-17] MEDS: SENNOSIDES/DOCUSATE SODIUM TAB PO SCH ×2 (08:59→21:10)
[2017-09-17] MEDS: ROSUVASTATIN CALCIUM 20 MG TAB PO SCH (08:59)
[2017-09-17] MEDS: AMPYRA 10 MG PO SCH ×2 (09:03→21:11)
[2017-09-17] MEDS: [UNRECOGNIZED DRUG - REMARK] PO SCH (09:04)
--- NOTE | 2017-09-17 09:54 | SOAPPROG ---
SOAP Progress Note Assessment/Plan: 62-year-old male with recent exacerbation of multiple sclerosis resulting in left lower extremity weakness, gait dysfunction, cognitive deficits (? extent of acute versus chronic) and possible mild dysphagia. He was admitted to [facility] and given 3 days of IV Solu-Medrol. Today's update: Patient has had some high blood pressures in the 160s/90s, suggested possible increase of blood pressure medications and he felt that they were artificially high on the automatic blood pressure device. Requesting manual blood pressures for the next 3 readings including 1 today. We will reassess decision making after that. Continue to monitor for signs or symptoms of hypertensive urgency. Orthotics to be delivered today. Remainder of plan below relatively unchanged. * Multiple sclerosis exacerbation with left lower extremity weakness. MRI without any acute demyelinating lesions but large burden of chronic lesions. * Initial functional independence measure 62 on 09/09/2017; increased to 85 as of 09/16/2017. Requires cues for technique with transfers. Ambulates 15-30 feet minimal assist, left AFO, front wheeled walker. Working on platform steps as he is 2 platform steps to enter his house. PT concerned about safety. Need structure and cues for ADLs. Inconsistent, especially with fatigue in the evenings * Continue PT and OT with goal of independent wheelchair mobility and standby assist for walking short distances in the home. * Recommend follow up with physiatry Possible L5-S1 radiculopathy. * Discussed with primary care provider Dr. Eunice Arrieta, . He had a lumbar spine x-ray on 06/05/2017 which showed osteoarthritis with L5- S1 1 disc thinning. Per hospital H&P he had recent visit with a spine surgeon at [facility] and was advised that his leg weakness was not related to spinal disease. * He has had increased falls recently. He has also had increased psychological stress as he has had to testify regarding a Federal law suit involving airplane and train travel to [place] approximately 1 month ago. * Cognitive deficits. * /30 on the Pillo cognitive assessment, not consistent with dementia. Has decreased safety awareness and insight, has deficit to executive function. * Continue Speech/Language Pathology. * Hypertension. Continue carvedilol and losartan. Has had elevated blood pressures, rechecking with manual pressures as well. Readdress when there is additional data. * Added amlodipine 2.5 mg QD starting 09/09/2017 per patient's request. * Monitor for low BP or orthostatic symptoms. * Multiple sclerosis medication. Continue sipinomod, which patient reports is study drug that he has been taking for many years. Continue dalfampridine. * History of coronary artery disease with angina. Nitroglycerin 0.4 mg sublingual q.5 minutes p.r.n. anginal-like symptoms. Has been asymptomatic throughout his stay. * Occasional hypoxemia but no signs or symptoms of CHF. * Dyslipidemia. Continue Crestor 20 mg daily. * Hypoaldosteronism. Continue fludrocortisone acetate 0.1 mg daily. * Urinary urgency/incontinence. * Urinalysis was normal. * May be developing neurogenic bladder, but post-void residual ranging from 79 cc to 129 cc 09/15/2017. * Recommend follow up with Urology Significant concerns regarding safety. Will need wheelchair and house needs to be wheelchair accessible. He is essentially homebound with IADLs and transportation of the house provided by his . Tentative discharge date of . Follow up after discharge with neurologist Dr. Lawrence and primary care provider Dr. Eunice Arrieta. Recommend follow up with Urology for urodynamics and follow up with Dr. Perez for physiatric management of impairments. 09/15/17 08:25 09/15/17 08:31 09/17/17 09:51 Subjective: Chief complaint: Rehab progress Patient endorses good progress and has been making neurological gains per his observation. No new shortness of breath or chest pain, no new numbness, tingling, or weakness. He says his orthotics are showing up today. When discussed his high blood pressure readings with him he preferred to do some manual recheck says opposed adjusting his medications at this point. Objective: Vital Signs Temp Pulse Resp BP Pulse Ox 36.9 C 61 17 149/86 H 94 09/17/17 06:01 09/17/17 08:57 09/17/17 06:01 09/17/17 08:58 09/17/17 06:01 Laboratory Results 09/05/17 06:00 09/05/17 06:00 09/16/17 09/17/17 09/18/17 05:59 05:59 05:59 Intake Total 1406 550 Output Total 1754 1675 Balance -348 -1128 Physical Exam - Physical Exam General Appearance: alert, no apparent distress EENT: No scleral icterus (R), No scleral icterus (L) Respiratory: No respiratory distress, No accessory muscle use Cardiac/Chest: normal peripheral pulses, regular rate, rhythm Skin: normal color, warm/dry, No cyanosis, No diaphoresis Neuro/Psych: alert, normal mood/affect, oriented x 3, other (Global weakness improving) ICD10 Worksheet Patient Problems: Problems Problem Status Onset Multiple sclerosis Acute Weakness of left lower extremity Acute
[2017-09-18] MEDS: FLUDROCORTISONE ACETATE 0.1 MG TAB PO SCH (08:39)
[2017-09-18] MEDS: CARVEDILOL 25 MG TAB PO SCH ×2 (08:39→18:07)
[2017-09-18] MEDS: FLUoxetine 20 MG CAP PO SCH (08:39)
[2017-09-18] MEDS: ROSUVASTATIN CALCIUM 20 MG TAB PO SCH (08:40)
[2017-09-18] MEDS: BACLOFEN 10 MG TAB PO SCH ×3 (08:40→21:55)
[2017-09-18] MEDS: SENNOSIDES/DOCUSATE SODIUM TAB PO SCH ×2 (08:40→21:55)
[2017-09-18] MEDS: LOSARTAN POTASSIUM 25 MG TAB PO SCH (08:40)
[2017-09-18] MEDS: AMPYRA 10 MG PO SCH ×2 (08:41→21:56)
[2017-09-18] MEDS: [UNRECOGNIZED DRUG - REMARK] PO SCH (09:04)
--- NOTE | 2017-09-18 13:28 | SOAPPROG ---
SOAP Progress Note Assessment/Plan: Assessment: 62-year-old male with recent exacerbation of multiple sclerosis resulting in left lower extremity weakness, gait dysfunction, cognitive deficits (? extent of acute versus chronic) and possible mild dysphagia. He was admitted to [facility] and given 3 days of IV Solu-Medrol. * Multiple sclerosis exacerbation with left lower extremity weakness. HE IS CURRENTLY AMBULATING WITH OFF SHELF LEFT AFO AND APPARENTLY WILL BE GETTING THE CUSTOM AFO IN THE NEXT WEEK OR SO. EXPLAINED TO THE PATIENT AND HIS FAMILY THAT THE ANKLE-FOOT ORTHOSES WILL NOT ONLY HELP WITH TOE CLEARANCE BUT ALSO WITH LEFT KNEE STABILITY. HE IS CURRENTLY AMBULATING 100 FT BUT EXPERIENCES FATIGUE AFTER 50 FT. MRI without any acute demyelinating lesions but large burden of chronic lesions. * Initial functional independence measure 62 on 09/09/2017; increased to 85 as of 09/16/2017. Requires cues for technique with transfers. Working on platform steps as he is 2 platform steps to enter his house. PT concerned about safety. Need structure and cues for ADLs. Inconsistent, especially with fatigue in the evenings * Continue PT and OT with goal of independent wheelchair mobility and standby assist for walking short distances in the home. * Recommend follow up with physiatry * Cognitive deficits. * 26/30 on the Pillo cognitive assessment, not consistent with dementia. Has decreased safety awareness and insight, has deficit to executive function. * Continue Speech/Language Pathology. * Hypertension. TIME HIS LAST 3 BLOOD PRESSURES HAVE BEEN 153/91. THEREFORE WILL INCREASE LOSARTAN TO 50 MG DAILY. Continue carvedilol and losartan. * Added amlodipine 2.5 mg QD starting 09/09/2017 per patient's request. * Monitor for low BP or orthostatic symptoms. * Multiple sclerosis medication. Continue sipinomod, which patient reports is study drug that he has been taking for many years. Continue dalfampridine. * History of coronary artery disease with angina. Nitroglycerin 0.4 mg sublingual q.5 minutes p.r.n. anginal-like symptoms. Has been asymptomatic throughout his stay. * Occasional hypoxemia but no signs or symptoms of CHF. * Dyslipidemia. Continue Crestor 20 mg daily. * Hypoaldosteronism. Continue fludrocortisone acetate 0.1 mg daily. * Urinary urgency/incontinence. * Urinalysis was normal. * May be developing neurogenic bladder, but post-void residual ranging from 79 cc to 129 cc 09/15/2017. * Recommend follow up with Urology Tentative discharge date of 09/23/2017. HAD FAMILY MEETING TODAY WITH REHAB TEAM , PATIENT'S AND DAUGHTER. DAUGHTER STATES THAT THEY ARE CONSIDERING SELLING THE HOME TO MOVE INTO A RANCH HOME THAT IS WHEELCHAIR ACCESSIBLE. THE REHAB TEAM CONFIRM THAT THIS IS A GOOD IDEA. ALSO SUGGESTED TO PATIENT THE POSSIBILITY OF OBTAINING A VEHICLE THAT WILL ACCOMMODATE HIS POWER WHEELCHAIR. CASE MANAGEMENT AND PATIENT'S DAUGHTER WILL LOOK INTO THIS. APPARENTLY THE ELECTRIC WHEELCHAIR THAT HE HAS HAS NOT LEFT THE LIVING ROOM BECAUSE IT IS TOO LARGE TO NEGOTIATE THE HALLWAYS AND THEY CAN GET OUT OF THE HOUSE AND HAVE NO WAY TO TRANSPORT IT. Follow up after discharge with neurologist Dr. Lawrence and primary care provider Dr. Eunice Arrieta. Recommend follow up with Urology for urodynamics and follow up with Dr. Perez for physiatric management of impairments. 09/18/17 13:40 Subjective: HE DOES NOT VERBALIZE ANY COMPLAINTS. HE FEELS THAT HIS LEFT LOWER EXTREMITY CONTINUES TO GET STRONGER ALTHOUGH HE DOES REPORT GETTING FATIGUED WHEN HE WALKS GREATER THAN AND 50 FT. HE DENIES LOWER EXTREMITY PAIN. AND HE IS NOT HAVING ANY LOWER EXTREMITY SPASTICITY. HE REPORTS THAT HIS BOWEL PROGRAM HAS RETURNED BACK TO BASELINE. Objective: Vital Signs Temp Pulse Resp BP Pulse Ox 36.4 C 63 16 154/92 H 92 09/18/17 07:07 09/18/17 08:39 09/18/17 07:07 09/18/17 08:40 09/18/17 07:07 Laboratory Results 09/05/17 06:00 09/05/17 06:00 09/17/17 09/18/17 09/19/17 05:59 05:59 05:59 Intake Total 550 1280 300 Output Total 1675 1225 Balance -1125 55 300 Physical Exam - Physical Exam General Appearance: WD/WN, alert, no apparent distress Respiratory: lungs clear, normal breath sounds Cardiac/Chest: No edema Abdomen: normal bowel sounds, soft, No non-tender, No guarding Neuro/Psych: alert, normal mood/affect, oriented x 3, abnormal gait, motor weakness (LEFT LOWER EXTREMITY WEAKNESS WITH MILD LEFT FOOT DROP), other ( PATIENT HAS OFF SHELF LEFT AFO WHICH APPEARS TO BE GIVING HIM ADEQUATE DORSIFLEXION ASSIST) ICD10 Worksheet Patient Problems: Problems Problem Status Onset Multiple sclerosis Acute Weakness of left lower extremity Acute
[2017-09-18] MEDS: LOSARTAN POTASSIUM 50 MG TAB PO SCH (14:16)
[2017-09-19] MEDS: SENNOSIDES/DOCUSATE SODIUM TAB PO SCH ×2 (08:54→21:27)
[2017-09-19] MEDS: ROSUVASTATIN CALCIUM 20 MG TAB PO SCH (08:54)
[2017-09-19] MEDS: BACLOFEN 10 MG TAB PO SCH ×3 (08:54→21:27)
[2017-09-19] MEDS: FLUoxetine 20 MG CAP PO SCH (08:54)
[2017-09-19] MEDS: FLUDROCORTISONE ACETATE 0.1 MG TAB PO SCH (08:54)
[2017-09-19] MEDS: LOSARTAN POTASSIUM 50 MG TAB PO SCH (08:55)
[2017-09-19] MEDS: CARVEDILOL 25 MG TAB PO SCH ×2 (08:56→17:10)
[2017-09-19] MEDS: AMPYRA 10 MG PO SCH ×2 (08:58→21:28)
[2017-09-19] MEDS: [UNRECOGNIZED DRUG - REMARK] PO SCH (09:01)
--- NOTE | 2017-09-19 11:55 | SOAPPROG ---
SOAP Progress Note Assessment/Plan: Assessment: 62-year-old male with recent exacerbation of multiple sclerosis resulting in left lower extremity weakness, gait dysfunction, cognitive deficits (? extent of acute versus chronic) and possible mild dysphagia. He was admitted to [facility] and given 3 days of IV Solu-Medrol. * Multiple sclerosis exacerbation with left lower extremity weakness. HE IS CURRENTLY AMBULATING WITH OFF SHELF LEFT AFO AND APPARENTLY WILL BE GETTING THE CUSTOM AFO IN THE NEXT WEEK OR SO. EXPLAINED TO THE PATIENT AND HIS FAMILY THAT THE ANKLE-FOOT ORTHOSES WILL NOT ONLY HELP WITH TOE CLEARANCE BUT ALSO WITH LEFT KNEE STABILITY. HE IS CURRENTLY AMBULATING 100 FT BUT EXPERIENCES FATIGUE AFTER 50 FT. MRI without any acute demyelinating lesions but large burden of chronic lesions. * Initial functional independence measure 62 on 09/09/2017; increased to 85 as of 09/16/2017. Requires cues for technique with transfers. Working on platform steps as he is 2 platform steps to enter his house. PT concerned about safety. Need structure and cues for ADLs. Inconsistent, especially with fatigue in the evenings * Continue PT and OT with goal of independent wheelchair mobility and standby assist for walking short distances in the home. * Recommend follow up with physiatry * Cognitive deficits. * 26/30 on the Pillo cognitive assessment, not consistent with dementia. Has decreased safety awareness and insight, has deficit to executive function. * Continue Speech/Language Pathology. * Hypertension. TIME HIS LAST 3 BLOOD PRESSURES HAVE BEEN 153/91. THEREFORE WILL INCREASE LOSARTAN TO 50 MG DAILY. Continue carvedilol and losartan. * Added amlodipine 2.5 mg QD starting 09/09/2017 per patient's request. * Monitor for low BP or orthostatic symptoms. * Multiple sclerosis medication. Continue sipinomod, which patient reports is study drug that he has been taking for many years. Continue dalfampridine. * History of coronary artery disease with angina. Nitroglycerin 0.4 mg sublingual q.5 minutes p.r.n. anginal-like symptoms. Has been asymptomatic throughout his stay. * Occasional hypoxemia but no signs or symptoms of CHF. * Dyslipidemia. Continue Crestor 20 mg daily. * Hypoaldosteronism. Continue fludrocortisone acetate 0.1 mg daily. * Urinary urgency/incontinence. * Urinalysis was normal. * May be developing neurogenic bladder, but post-void residual ranging from 79 cc to 129 cc 09/15/2017. * Recommend follow up with Urology Tentative discharge date of 09/23/2017. , PATIENT'S AND DAUGHTER. DAUGHTER STATES THAT THEY ARE CONSIDERING SELLING THE HOME TO MOVE INTO A RANCH HOME THAT IS WHEELCHAIR ACCESSIBLE. THE REHAB TEAM CONFIRM THAT THIS IS A GOOD IDEA. ALSO SUGGESTED TO PATIENT THE POSSIBILITY OF OBTAINING A VEHICLE THAT WILL ACCOMMODATE HIS POWER WHEELCHAIR. CASE MANAGEMENT AND PATIENT'S DAUGHTER WILL LOOK INTO THIS. APPARENTLY THE ELECTRIC WHEELCHAIR THAT HE HAS HAS NOT LEFT THE LIVING ROOM BECAUSE IT IS TOO LARGE TO NEGOTIATE THE HALLWAYS AND THEY CAN GET OUT OF THE HOUSE AND HAVE NO WAY TO TRANSPORT IT. Follow up after discharge with neurologist Dr. Lawrence and primary care provider Dr. Eunice Arrieta. Recommend follow up with Urology for urodynamics and follow up with Dr. Perez for physiatric management of impairments. Plan: 09/19/17 11:54 09/19/17 19:42 Subjective: feels great. no new complaints Objective: Vital Signs Temp Pulse Resp BP Pulse Ox 36.4 C 57 L 17 133/77 H 94 09/19/17 08:00 09/19/17 08:56 09/19/17 08:00 09/19/17 08:56 09/19/17 11:51 Laboratory Results 09/05/17 06:00 09/05/17 06:00 09/18/17 09/19/17 09/20/17 05:59 05:59 05:59 Intake Total 4804 191 9010 Output Total 1225 1535 Balance 55 -595 1184 Physical Exam - Physical Exam General Appearance: WD/WN, alert, no apparent distress Respiratory: No respiratory distress Cardiac/Chest: No edema Neuro/Psych: alert, normal mood/affect, oriented x 3 ICD10 Worksheet Patient Problems: Problems Problem Status Onset Multiple sclerosis Acute Weakness of left lower extremity Acute
[2017-09-20] MEDS: BACLOFEN 10 MG TAB PO SCH ×3 (07:46→21:50)
[2017-09-20] MEDS: CARVEDILOL 25 MG TAB PO SCH ×2 (07:46→17:31)
[2017-09-20] MEDS: AMPYRA 10 MG PO SCH ×2 (07:47→21:48)
[2017-09-20] MEDS: LOSARTAN POTASSIUM 50 MG TAB PO SCH (07:47)
[2017-09-20] MEDS: FLUDROCORTISONE ACETATE 0.1 MG TAB PO SCH (07:47)
[2017-09-20] MEDS: FLUoxetine 20 MG CAP PO SCH (07:47)
[2017-09-20] MEDS: SENNOSIDES/DOCUSATE SODIUM TAB PO SCH ×2 (07:48→21:50)
[2017-09-20] MEDS: ROSUVASTATIN CALCIUM 20 MG TAB PO SCH (07:48)
[2017-09-20] MEDS: [UNRECOGNIZED DRUG - REMARK] PO SCH (07:51)
--- NOTE | 2017-09-20 19:33 | SOAPPROG ---
SOAP Progress Note Assessment/Plan: Assessment: 62-year-old male with recent exacerbation of multiple sclerosis resulting in left lower extremity weakness, gait dysfunction, cognitive deficits (? extent of acute versus chronic) and possible mild dysphagia. He was admitted to [facility] and given 3 days of IV Solu-Medrol. * Multiple sclerosis exacerbation with left lower extremity weakness. HE IS CURRENTLY AMBULATING WITH OFF SHELF LEFT AFO AND APPARENTLY WILL BE GETTING THE CUSTOM AFO IN THE NEXT WEEK OR SO. EXPLAINED TO THE PATIENT AND HIS FAMILY THAT THE ANKLE-FOOT ORTHOSES WILL NOT ONLY HELP WITH TOE CLEARANCE BUT ALSO WITH LEFT KNEE STABILITY. HE IS CURRENTLY AMBULATING 100 FT BUT EXPERIENCES FATIGUE AFTER 50 FT. MRI without any acute demyelinating lesions but large burden of chronic lesions. * Initial functional independence measure 62 on 09/09/2017; increased to 85 as of 09/16/2017. Requires cues for technique with transfers. Working on platform steps as he is 2 platform steps to enter his house. PT concerned about safety. Need structure and cues for ADLs. Inconsistent, especially with fatigue in the evenings * Continue PT and OT with goal of independent wheelchair mobility and standby assist for walking short distances in the home. * Recommend follow up with physiatry * Cognitive deficits. * 26/30 on the Pillo cognitive assessment, not consistent with dementia. Has decreased safety awareness and insight, has deficit to executive function. * Continue Speech/Language Pathology. * Hypertension. TIME HIS LAST 3 BLOOD PRESSURES HAVE BEEN 153/91. THEREFORE WILL INCREASE LOSARTAN TO 50 MG DAILY. Continue carvedilol and losartan. * Added amlodipine 2.5 mg QD starting 09/09/2017 per patient's request. * Monitor for low BP or orthostatic symptoms. * Blood pressure stable * Multiple sclerosis medication. Continue sipinomod, which patient reports is study drug that he has been taking for many years. Continue dalfampridine. * History of coronary artery disease with angina. Nitroglycerin 0.4 mg sublingual q.5 minutes p.r.n. anginal-like symptoms. Has been asymptomatic throughout his stay. * Occasional hypoxemia but no signs or symptoms of CHF. * Dyslipidemia. Continue Crestor 20 mg daily. * Hypoaldosteronism. Continue fludrocortisone acetate 0.1 mg daily. * Urinary urgency/incontinence. * Urinalysis was normal. * May be developing neurogenic bladder, but post-void residual ranging from 79 cc to 129 cc 09/15/2017. * Recommend follow up with Urology Tentative discharge date of 09/23/2017. , PATIENT'S AND DAUGHTER. DAUGHTER STATES THAT THEY ARE CONSIDERING SELLING THE HOME TO MOVE INTO A RANCH HOME THAT IS WHEELCHAIR ACCESSIBLE. THE REHAB TEAM CONFIRM THAT THIS IS A GOOD IDEA. ALSO SUGGESTED TO PATIENT THE POSSIBILITY OF OBTAINING A VEHICLE THAT WILL ACCOMMODATE HIS POWER WHEELCHAIR. CASE MANAGEMENT AND PATIENT'S DAUGHTER WILL LOOK INTO THIS. APPARENTLY THE ELECTRIC WHEELCHAIR THAT HE HAS HAS NOT LEFT THE LIVING ROOM BECAUSE IT IS TOO LARGE TO NEGOTIATE THE HALLWAYS AND THEY CAN GET OUT OF THE HOUSE AND HAVE NO WAY TO TRANSPORT IT. Follow up after discharge with neurologist Dr. Lawrence and primary care provider Dr. Eunice Arrieta. Recommend follow up with Urology for urodynamics and follow up with Dr. Perez for physiatric management of impairments. Plan: 09/19/17 11:54 09/19/17 19:42 09/20/17 19:33 Subjective: No new complaints Objective: Vital Signs Temp Pulse Resp BP Pulse Ox 36.5 C 69 16 128/52 H 94 09/20/17 06:30 09/20/17 17:31 09/20/17 06:30 09/20/17 17:31 09/20/17 13:30 Laboratory Results 09/05/17 06:00 09/05/17 06:00 09/19/17 09/20/17 09/21/17 05:59 05:59 05:59 Intake Total 940 1924 2264 Output Total 1535 1375 925 Balance -961 740 2663 Physical Exam - Physical Exam General Appearance: WD/WN, alert Respiratory: lungs clear, normal breath sounds Cardiac/Chest: regular rate, rhythm, No edema Abdomen: non-tender, soft Neuro/Psych: alert, normal mood/affect, oriented x 3 ICD10 Worksheet Patient Problems: Problems Problem Status Onset Multiple sclerosis Acute Weakness of left lower extremity Acute
[2017-09-21] MEDS: FLUDROCORTISONE ACETATE 0.1 MG TAB PO SCH (08:04)
[2017-09-21] MEDS: CARVEDILOL 25 MG TAB PO SCH ×2 (08:04→17:55)
[2017-09-21] MEDS: BACLOFEN 10 MG TAB PO SCH ×3 (08:04→21:09)
[2017-09-21] MEDS: LOSARTAN POTASSIUM 50 MG TAB PO SCH (08:06)
[2017-09-21] MEDS: FLUoxetine 20 MG CAP PO SCH (08:06)
[2017-09-21] MEDS: ROSUVASTATIN CALCIUM 20 MG TAB PO SCH (08:07)
[2017-09-21] MEDS: SENNOSIDES/DOCUSATE SODIUM TAB PO SCH ×2 (08:07→19:55)
[2017-09-21] MEDS: AMPYRA 10 MG PO SCH ×2 (08:08→19:55)
[2017-09-21] MEDS: [UNRECOGNIZED DRUG - REMARK] PO SCH (08:13)
--- NOTE | 2017-09-21 12:52 | SOAPPROG ---
SOAP Progress Note Assessment/Plan: Assessment: 62-year-old male with recent exacerbation of multiple sclerosis resulting in left lower extremity weakness, gait dysfunction, cognitive deficits (? extent of acute versus chronic) and possible mild dysphagia. He was admitted to [facility] and given 3 days of IV Solu-Medrol. * Multiple sclerosis exacerbation with left lower extremity weakness. HE IS CURRENTLY AMBULATING WITH OFF SHELF LEFT AFO AND APPARENTLY WILL BE GETTING THE CUSTOM AFO IN THE NEXT WEEK OR SO. EXPLAINED TO THE PATIENT AND HIS FAMILY THAT THE ANKLE-FOOT ORTHOSES WILL NOT ONLY HELP WITH TOE CLEARANCE BUT ALSO WITH LEFT KNEE STABILITY. HE IS CURRENTLY AMBULATING 100 FT BUT EXPERIENCES FATIGUE AFTER 50 FT. MRI without any acute demyelinating lesions but large burden of chronic lesions. * Initial functional independence measure 62 on 09/09/2017; increased to 85 as of 09/16/2017. Requires cues for technique with transfers. Working on platform steps as he is 2 platform steps to enter his house. PT concerned about safety. Need structure and cues for ADLs. Inconsistent, especially with fatigue in the evenings * Continue PT and OT with goal of independent wheelchair mobility and standby assist for walking short distances in the home. * Recommend follow up with physiatry * Cognitive deficits. * 26/30 on the [place] cognitive assessment, not consistent with dementia. Has decreased safety awareness and insight, has deficit to executive function. * Continue Speech/Language Pathology. SPEECH THERAPY REPORTS MILD IMPULSIVENESS. * Hypertension. LOSARTAN WAS INCREASED TO TO 50 MG DAILY ON 09/18/2017. Continue carvedilol. BLOOD PRESSURE THIS MORNING 1 AND/C6 * Added amlodipine 2.5 mg QD starting 09/09/2017 per patient's request. * Monitor for low BP or orthostatic symptoms. * Multiple sclerosis medication. Continue sipinomod, which patient reports is study drug that he has been taking for many years. Continue dalfampridine. * History of coronary artery disease with angina. Nitroglycerin 0.4 mg sublingual q.5 minutes p.r.n. anginal-like symptoms. Has been asymptomatic throughout his stay. * Occasional hypoxemia but no signs or symptoms of CHF. * Dyslipidemia. Continue Crestor 20 mg daily. * Hypoaldosteronism. Continue fludrocortisone acetate 0.1 mg daily. * Urinary urgency/incontinence. * Urinalysis was normal. * May be developing neurogenic bladder, but post-void residual ranging from 79 cc to 129 cc 09/15/2017. * Recommend follow up with Urology Tentative discharge date of 09/23/2017. FAMILY MEETING 09/18 WITH REHAB TEAM, PATIENT'S AND DAUGHTER. DAUGHTER STATES THAT THEY ARE CONSIDERING SELLING THE HOME TO MOVE INTO A RANCH HOME THAT IS WHEELCHAIR ACCESSIBLE. THE REHAB TEAM CONFIRM THAT THIS IS A GOOD IDEA. ALSO SUGGESTED TO PATIENT THE POSSIBILITY OF OBTAINING A VEHICLE THAT WILL ACCOMMODATE HIS POWER WHEELCHAIR. CASE MANAGEMENT AND PATIENT'S DAUGHTER WILL LOOK INTO THIS. APPARENTLY THE ELECTRIC WHEELCHAIR THAT HE HAS HAS NOT LEFT THE LIVING ROOM BECAUSE IT IS TOO LARGE TO NEGOTIATE THE HALLWAYS AND THEY CAN GET OUT OF THE HOUSE AND HAVE NO WAY TO TRANSPORT IT. PAPERWORK WILL BE COMPLETED FOR HIM TO RECEIVE SUPPLEMENTAL HOME O2. Follow up after discharge with neurologist Dr. Lawrence and primary care provider Dr. Eunice Arrieta. Recommend follow up with Urology for urodynamics and follow up with Dr. Perez for physiatric management of impairments. Subjective: He does not have any complaints. He reports he had a good weekend. No issues reported by nursing staff. Objective: Vital Signs Temp Pulse Resp BP Pulse Ox 36.3 C 76 16 110/76 95 09/21/17 06:14 09/21/17 08:04 09/21/17 06:14 09/21/17 08:07 09/21/17 06:14 Laboratory Results 09/05/17 06:00 09/05/17 06:00 09/20/17 09/21/17 09/22/17 05:59 05:59 05:59 Intake Total 1924 2664 Output Total 1375 1575 Balance 549 1089 Physical Exam - Physical Exam General Appearance: WD/WN, alert, no apparent distress Respiratory: chest non-tender, lungs clear, normal breath sounds Abdomen: normal bowel sounds, non-tender, soft Neuro/Psych: alert, oriented x 3, motor weakness (Left lower extremity 3/5 left hip flexors 4-/5 left quadriceps 3+/5 left ankle dorsiflexors. He has an AFO which she is currently not wearing. No ankle clonus. No left lower extremity velocity dependent spasticity.) ICD10 Worksheet Patient Problems: Problems Problem Status Onset Multiple sclerosis Acute Weakness of left lower extremity Acute
[2017-09-22] MEDS: CARVEDILOL 25 MG TAB PO SCH ×2 (08:48→17:38)
[2017-09-22] MEDS: LOSARTAN POTASSIUM 50 MG TAB PO SCH (08:49)
[2017-09-22] MEDS: FLUoxetine 20 MG CAP PO SCH (08:49)
[2017-09-22] MEDS: BACLOFEN 10 MG TAB PO SCH ×3 (08:49→20:56)
[2017-09-22] MEDS: FLUDROCORTISONE ACETATE 0.1 MG TAB PO SCH (08:49)
[2017-09-22] MEDS: ROSUVASTATIN CALCIUM 20 MG TAB PO SCH (08:50)
[2017-09-22] MEDS: SENNOSIDES/DOCUSATE SODIUM TAB PO SCH ×2 (08:50→20:50)
[2017-09-22] MEDS: AMPYRA 10 MG PO SCH ×2 (08:55→20:50)
[2017-09-22] MEDS: [UNRECOGNIZED DRUG - REMARK] PO SCH (08:56)
--- NOTE | 2017-09-22 11:09 | SOAPPROG ---
ERICKA Progress Note Assessment/Plan: 62-year-old male with recent exacerbation of multiple sclerosis resulting in left lower extremity weakness, gait dysfunction, cognitive deficits (? extent of acute versus chronic) and possible mild dysphagia. He was admitted to [facility] and given 3 days of IV Solu-Medrol. Today's update: Patient doing well in therapies per therapy report as well as per his report. He does not have any particular concerns today. Continue the rehab plan below, relatively unchanged. Total of 20 min was spent on the floor in the care of the patient, the majority of which was spent counseling and coordination of care regarding discharge planning. He will be discharging home with family, all modifications are being made today and in the coming days. * Multiple sclerosis exacerbation with left lower extremity weakness. MRI without any acute demyelinating lesions but large burden of chronic lesions. Increasingly improved gait per therapy. Ambulating with left AFO for toe clearance and left knee stability. * Initial functional independence measure 62 on 09/09/2017; increased to 85 as of 09/16/2017. Requires cues for technique with transfers. Working on platform steps as he is 2 platform steps to enter his house. PT concerned about safety. Need structure and cues for ADLs. Inconsistent, especially with fatigue in the evenings * Continue PT and OT with goal of independent wheelchair mobility and standby assist for walking short distances in the home. * Recommend follow up with physiatry * Cognitive deficits. * 26/30 on the [place] cognitive assessment, not consistent with dementia. Has decreased safety awareness and insight, has deficit to executive function. * Continue Speech/Language Pathology. Continue speech therapy for mild impulsiveness. * Hypertension. Losartan 50 mg daily Continue carvedilol. Blood pressure has been reasonable * Added amlodipine 2.5 mg QD starting 09/09/2017 per patient's request. * Monitor for low BP or orthostatic symptoms. * Multiple sclerosis medication. Continue sipinomod, which patient reports is study drug that he has been taking for many years. Continue dalfampridine. * History of coronary artery disease with angina. Nitroglycerin 0.4 mg sublingual q.5 minutes p.r.n. anginal-like symptoms. Has been asymptomatic throughout his stay. * Occasional hypoxemia but no signs or symptoms of CHF. * Dyslipidemia. Continue Crestor 20 mg daily. * Hypoaldosteronism. Continue fludrocortisone acetate 0.1 mg daily. * Urinary urgency/incontinence. * Urinalysis was normal. * May be developing neurogenic bladder, but post-void residual ranging from 79 cc to 129 cc 09/15/2017. * Recommend follow up with Urology Tentative discharge date of 09/23/2017, home modifications arm process and may push back discharge a bit. He is making excellent progress in therapies however and continue to benefit from intensive therapy. He has appropriate inpatient rehab goals. Follow up after discharge with neurologist Dr. Lawrence and primary care provider Dr. Eunice Arrieta. Recommend follow up with Urology for urodynamics and follow up with Dr. Perez for physiatric management of impairments. 09/15/17 08:25 09/15/17 08:31 09/17/17 09:51 09/22/17 11:06 Subjective: Chief complaint: Therapy progress No acute events overnight. Physical therapy this morning reports that he is making excellent progress daily and able to tolerate the therapy as scheduled. Patient denies any new shortness of breath or chest pain, no new numbness, tingling, or weakness. He endorses that his family is currently working on home modifications for discharge planning. He is working with social work on this issue. Objective: Vital Signs Temp Pulse Resp BP Pulse Ox 36.6 C 67 16 128/88 H 95 09/22/17 07:45 09/22/17 08:48 09/22/17 07:45 09/22/17 08:49 09/22/17 07:45 Laboratory Results 09/05/17 06:00 09/05/17 06:00 09/21/17 09/22/17 09/23/17 05:59 05:59 05:59 Intake Total 2664 600 300 Output Total 1575 900 Balance 1089 -300 300 Physical Exam - Physical Exam General Appearance: alert, no apparent distress Respiratory: No respiratory distress, No accessory muscle use Cardiac/Chest: normal peripheral pulses, regular rate, rhythm, No edema Neuro/Psych: alert, normal mood/affect, oriented x 3, motor weakness, other ( Left AFO without skin redness, states that it is fitting a bit tight but no skin irritation.) ICD10 Worksheet Patient Problems: Problems Problem Status Onset Multiple sclerosis Acute Weakness of left lower extremity Acute
[2017-09-23] MEDS: ROSUVASTATIN CALCIUM 20 MG TAB PO SCH (08:28)
[2017-09-23] MEDS: FLUDROCORTISONE ACETATE 0.1 MG TAB PO SCH (08:28)
[2017-09-23] MEDS: FLUoxetine 20 MG CAP PO SCH (08:29)
[2017-09-23] MEDS: SENNOSIDES/DOCUSATE SODIUM TAB PO SCH ×2 (08:29→21:50)
[2017-09-23] MEDS: BACLOFEN 10 MG TAB PO SCH ×3 (08:29→21:50)
[2017-09-23] MEDS: CARVEDILOL 25 MG TAB PO SCH ×2 (08:31→17:46)
[2017-09-23] MEDS: LOSARTAN POTASSIUM 50 MG TAB PO SCH (08:31)
[2017-09-23] MEDS: AMPYRA 10 MG PO SCH ×2 (08:32→21:50)
[2017-09-23] MEDS: [UNRECOGNIZED DRUG - REMARK] PO SCH (08:38)
--- NOTE | 2017-09-23 12:46 | SOAPPROG ---
SOAP Progress Note Assessment/Plan: Assessment: 62-year-old male with recent exacerbation of multiple sclerosis resulting in left lower extremity weakness, gait dysfunction, cognitive deficits (? extent of acute versus chronic) and possible mild dysphagia. He was admitted to [facility] and given 3 days of IV Solu-Medrol. * Multiple sclerosis exacerbation with left lower extremity weakness. MRI without any acute demyelinating lesions but large burden of chronic lesions. Increasingly improved gait per therapy. Ambulating with left AFO for toe clearance and left knee stability. * Initial functional independence measure 62 on 09/09/2017; increased to 85 as of 09/16/2017. Requires cues for technique with transfers. Working on platform steps as he is 2 platform steps to enter his house. PT concerned about safety. Need structure and cues for ADLs. Inconsistent, especially with fatigue in the evenings * Continue PT and OT with goal of independent wheelchair mobility and standby assist for walking short distances in the home. HE IS CURRENTLY AMBULATING 180 FT WITH FWW BUT FATIGUES AFTER 50 FT. NEEDS VERBAL CUING AND REMINDING FOR PROPER MECHANICS WHEN PERFORMING SIT TO STAND TRANSFER. HE AMBULATES WITH A STEP 2 PROGRESSION. * Recommend follow up with physiatry * Cognitive deficits. CONTINUES TO SHOW MILD COGNITIVE DEFICITS PER SPEECH THERAPY. LACKS SOME INSIGHT AND SHOWS POOR SHORT-TERM MEMORY. * 26/30 on the [place] cognitive assessment, not consistent with dementia. Has decreased safety awareness and insight, has deficit to executive function. * Continue Speech/Language Pathology. Continue speech therapy for mild impulsiveness. * Hypertension. Losartan 50 mg daily Continue carvedilol. Blood pressure has been reasonable * Added amlodipine 2.5 mg QD starting 09/09/2017 per patient's request. * Monitor for low BP or orthostatic symptoms. * Multiple sclerosis medication. Continue sipinomod, which patient reports is study drug that he has been taking for many years. Continue dalfampridine. * History of coronary artery disease with angina. Nitroglycerin 0.4 mg sublingual q.5 minutes p.r.n. anginal-like symptoms. Has been asymptomatic throughout his stay. * Occasional hypoxemia but no signs or symptoms of CHF. * Dyslipidemia. Continue Crestor 20 mg daily. * Hypoaldosteronism. Continue fludrocortisone acetate 0.1 mg daily. * Urinary urgency-NO RECENT BLADDER INCONTINENCE. * Urinalysis was normal. * May be developing neurogenic bladder, but post-void residual ranging from 79 cc to 129 cc 09/15/2017. * Recommend follow up with Urology DISCHARGE DISPOSITION-09/25 OR 09/29. Follow up after discharge with neurologist Dr. Lawrence and primary care provider Dr. Eunice Arrieta. Recommend follow up with Urology for urodynamics and follow up with Dr. Perez for physiatric management of impairments. 09/23/17 12:43 Subjective: NO PROBLEMS REPORTED BY PATIENT. NURSING REPORTS PATIENT HAD EPISODE OF BOWEL INCONTINENCE EARLIER THIS MORNING WHICH PATIENT STATES IS DUE TO THE [place]. Objective: Vital Signs Temp Pulse Resp BP Pulse Ox 36.8 C 69 16 120/74 89 L 09/22/17 18:33 09/23/17 08:31 09/22/17 18:33 09/23/17 08:31 09/23/17 04:51 Laboratory Results 09/05/17 06:00 09/05/17 06:00 09/22/17 09/23/17 09/24/17 05:59 05:59 05:59 Intake Total 600 1530 Output Total 900 1150 Balance -300 380 Physical Exam - Physical Exam General Appearance: WD/WN, alert, no apparent distress Respiratory: lungs clear, normal breath sounds Abdomen: normal bowel sounds, non-tender, soft Extremities: No swelling, No Gt's sign Neuro/Psych: motor weakness (LEFT LOWER EXTREMITY WEAKNESS SECONDARY TO MS FLARE UP, UNCHANGED FROM YESTERDAY'S EXAM 3/5 LEFT HIP FLEXION 3+ 4-/5 LEFT QUADRICEPS 3/5 LEFT ANKLE DORSIFLEXORS.), cognition abnormalities ICD10 Worksheet Patient Problems: Problems Problem Status Onset Multiple sclerosis Acute Weakness of left lower extremity Acute
[2017-09-23 19:54] VITALS: RESP 16
[2017-09-24] MEDS: BACLOFEN 10 MG TAB PO SCH ×3 (08:09→21:29)
[2017-09-24] MEDS: ROSUVASTATIN CALCIUM 20 MG TAB PO SCH (08:09)
[2017-09-24] MEDS: FLUDROCORTISONE ACETATE 0.1 MG TAB PO SCH (08:09)
[2017-09-24] MEDS: FLUoxetine 20 MG CAP PO SCH (08:09)
[2017-09-24] MEDS: LOSARTAN POTASSIUM 50 MG TAB PO SCH (08:10)
[2017-09-24] MEDS: CARVEDILOL 25 MG TAB PO SCH ×2 (08:10→18:26)
[2017-09-24] MEDS: AMPYRA 10 MG PO SCH ×2 (08:10→21:30)
[2017-09-24] MEDS: SENNOSIDES/DOCUSATE SODIUM TAB PO SCH ×3 (08:11→22:00)
[2017-09-24] MEDS: [UNRECOGNIZED DRUG - REMARK] PO SCH (08:12)
--- NOTE | 2017-09-24 12:20 | PDOREHIP ---
Admission IRF-TIA - Admission - 3 Day Assessment Period Admission Date/Day 1: 09/04/17 Day 2: 09/05/17 Day 3: 09/06/17 - Active Diagnoses Comorbidities and Co-existing Conditions at Admission: 01867. PVD or PAD - Skin Conditions # Stage 1 Pressure Ulcers-Admission: 0 # Stage 2 Pressure Ulcers-Admission: 0 # Stage 3 Pressure Ulcers-Admission: 0 # Stage 4 Pressure Ulcers-Admission: 0 # Unstageable Pressure Ulcers (Non-remove Dress)-Admission: 0 # Unstageable Pressure Ulcers (Slough/Eschar)-Admission: 0 # Unstageable Pressure Ulcers (Deep Tissue Injury)-Admission: 0 Discharge IRF-TIA - Discharge - 3 Day Assessment Period 2 Days Prior to Anticipated Discharge Date: 09/23/17 1 Day Prior to Anticipated Discharge Date: 09/24/17 Anticipated Discharge Date: 09/25/17
--- NOTE | 2017-09-24 13:36 | SOAPPROG ---
SOAP Progress Note Assessment/Plan: Assessment: 62-year-old male with recent exacerbation of multiple sclerosis resulting in left lower extremity weakness, gait dysfunction, cognitive deficits (? extent of acute versus chronic) and possible mild dysphagia. He was admitted to [facility] and given 3 days of IV Solu-Medrol. * Multiple sclerosis exacerbation with left lower extremity weakness. MRI without any acute demyelinating lesions but large burden of chronic lesions. Increasingly improved gait per therapy. Ambulating with left AFO for toe clearance and left knee stability. * Initial functional independence measure 62 on 09/09/2017; increased to 85 as of 09/16/2017. Requires cues for technique with transfers. Working on platform steps as he is 2 platform steps to enter his house. PT concerned about safety. Need structure and cues for ADLs. Inconsistent, especially with fatigue in the evenings * Continue PT and OT with goal of independent wheelchair mobility and standby assist for walking short distances in the home. HE IS CURRENTLY AMBULATING 180 FT WITH FWW BUT FATIGUES AFTER 50 FT. NEEDS VERBAL CUING AND REMINDING FOR PROPER MECHANICS WHEN PERFORMING SIT TO STAND TRANSFER. HE AMBULATES WITH A STEP 2 PROGRESSION. * Recommend follow up with physiatry * Cognitive deficits. CONTINUES TO SHOW MILD COGNITIVE DEFICITS PER SPEECH THERAPY. LACKS SOME INSIGHT AND SHOWS POOR SHORT-TERM MEMORY. * 26/30 on the [place] cognitive assessment, not consistent with dementia. Has decreased safety awareness and insight, has deficit to executive function. * Continue Speech/Language Pathology. Continue speech therapy for mild impulsiveness. * Hypertension. Losartan 50 mg daily Continue carvedilol. Blood pressure has been reasonable * Blood pressures have been stable * Multiple sclerosis mediAdded amlodipine 2.5 mg QD starting 09/09/2017 per patient's request. * Monitor for low BP or orthostatic symptoms.cation. Continue sipinomod, which patient reports is study drug that he has been taking for many years. Continue dalfampridine. * History of coronary artery disease with angina. Nitroglycerin 0.4 mg sublingual q.5 minutes p.r.n. anginal-like symptoms. Has been asymptomatic throughout his stay. * Occasional hypoxemia but no signs or symptoms of CHF. * Dyslipidemia. Continue Crestor 20 mg daily. * Hypoaldosteronism. Continue fludrocortisone acetate 0.1 mg daily. * Urinary urgency-NO RECENT BLADDER INCONTINENCE. * Urinalysis was normal. * May be developing neurogenic bladder, but post-void residual ranging from 79 cc to 129 cc 09/15/2017. * Recommend follow up with Urology DISCHARGE DISPOSITION-09/25 his embedded case manager has made arrangements for him to have home PT, home OT and home speech therapy. He will have supplemental O2, 2 L per nasal cannula at night. Follow up after discharge with neurologist Dr. Lawrence and primary care provider Dr. Eunice Arrieta. Recommend follow up with Urology for urodynamics and follow up with Dr. Perez for physiatric management of impairments. 09/23/17 12:43 09/24/17 13:35 Subjective: No new complaints. He is happy with his progress in physical therapy. He is eager to be discharged tomorrow. Objective: Vital Signs Temp Pulse Resp BP Pulse Ox 36.4 C 67 16 131/87 H 92 09/24/17 08:00 09/24/17 08:10 09/24/17 08:00 09/24/17 08:10 09/24/17 08:00 Laboratory Results 09/05/17 06:00 09/05/17 06:00 09/23/17 09/24/17 09/25/17 05:59 05:59 05:59 Intake Total 1530 704 594 Output Total 1150 750 Balance 380 -46 594 Physical Exam - Physical Exam General Appearance: WD/WN, alert, no apparent distress Respiratory: chest non-tender Abdomen: normal bowel sounds, non-tender, soft Neuro/Psych: motor weakness (Left hip flexors while seated 4-/5, quadriceps 3+ 4 -/5 hamstrings 4/5 tibialis anterior 4/5.), cognition abnormalities, other (No hypertonicity. No clonus.) ICD10 Worksheet Patient Problems: Problems Problem Status Onset Multiple sclerosis Acute Weakness of left lower extremity Acute
--- NOTE | 2017-09-24 14:24 | GDS ---
[f rep st] DISCHARGE SUMMARY IMPAIRMENT GROUP: 3.1. Multiple sclerosis. DATE OF ONSET: 09/02/2017. HISTORY: The patient is a 62-year-old male, with longstanding history of multiple sclerosis, who was admitted to [facility] on 09/02/2017, with significant progression of left lower extremity weakness due to multiple sclerosis exacerbation. It was noted that his symptoms began 2-3 weeks prior to admission. He was started on IV Solu-Medrol beginning on 2017. PT, OT, and speech therapy were initiated, and he was felt stable to be transferred to the inpatient rehabilitation unit at [facility]. On admission, he was noted to have significant left lower extremity weakness with hip flexors 3/5, hamstrings 3+/5, quadriceps 3/5, ankle dorsiflexors 2+/5, with grossly normal right lower extremity motor exam. His neurologist, Dr. Lawrence, was contacted because he has also been receiving multiple sclerosis study medication. He was restarted on his study drug, Siponimod, dosage 2 mg 1 tablet daily. He was also restarted on another multiple sclerosis drug, Empyrer 10 mg q.12 hours. His stay on the rehab unit was relatively uncomplicated, with the exception of some initial bowel and bladder incontinence which improved to full continence after adjustment of his medications. He received physical, occupational, and speech therapy. At the time of discharge, his left lower extremity strength had improved to functional strength, and he was able to ambulate up to 180 feet with the FWW, with fatigue reported after 50 feet. He required verbal cuing to go from sit to stand due to some safety concerns. Speech therapy continued to work with him regarding cognitive deficits secondary to multiple sclerosis and possibly some dementia changes. His speech therapist noted that he lacked insight and showed some poor short-term memory. Just prior to discharge, he scored 26/30 on the [place] Cognitive Assessment which was not consistent with dementia. Otherwise , he was medically stable. He continued to have management for hypertension, dyslipidemia, hypoaldosteronism, and urinary urgency. His case assembler was working closely with his family members regarding making the home more wheelchair accessible. They were working on widening the doorway to his bathroom and having a handicapped accessible toilet replace the current toilet. DISCHARGE PHYSICAL EXAM: GENERAL: He was in good spirits. Alert and oriented x3. Appropriate. LUNGS: Clear to auscultation. ABDOMEN: Slightly protuberant. Normoactive bowel sounds all 4 quadrants. NEUROLOGICAL: Left lower extremity motor exam 4/5, left hip flexors 3+, 4-/5, left quadriceps 3+, 4 -/5, left ankle dorsiflexors 4/5. CARDIOVASCULAR: Regular rate and rhythm. No murmurs, rubs, or gallops. EXTREMITIES: No lower extremity edema. No calf tenderness. DISCHARGE INSTRUCTIONS: He is discharged to home with his . He will receive home PT, OT, and speech therapy. Followup appointment with Dr. Lawrence with [facility]. /[id number]/MODL MTDD
[2017-09-24 20:14] VITALS: TEMP 98.6
[2017-09-25 06:04] VITALS: O2SAT 92
[2017-09-25] MEDS: FLUoxetine 20 MG CAP PO SCH (08:15)
[2017-09-25] MEDS: ROSUVASTATIN CALCIUM 20 MG TAB PO SCH (08:15)
[2017-09-25] MEDS: FLUDROCORTISONE ACETATE 0.1 MG TAB PO SCH (08:16)
[2017-09-25] MEDS: CARVEDILOL 25 MG TAB PO SCH (08:16)
[2017-09-25] MEDS: LOSARTAN POTASSIUM 50 MG TAB PO SCH (08:17)
[2017-09-25] MEDS: AMPYRA 10 MG PO SCH (08:17)
[2017-09-25] MEDS: BACLOFEN 10 MG TAB PO SCH (08:17)
[2017-09-25] MEDS: [UNRECOGNIZED DRUG - REMARK] PO SCH (08:20)
[2017-09-25 08:23] VITALS: BP 134/78; PULSE 61
[2017-09-25] MEDS: SENNOSIDES/DOCUSATE SODIUM TAB PO SCH (08:23)
== END 2017-09-25 14:23 | disposition home or self-care (01) | DRG 59 ==
LOC: BREH 09-04 15:46
PROVIDERS: ADMIT Physical Medicine & Rehabilitation; ATTEND Internal Medicine
PROC: F0636ZZ Communicative/Cognitive Integration Skills Treatment of Neurological System - Whole Body (ICD-10-PCS; principal; 2017-09-04)
PROC: F07M3ZZ Motor Function Treatment of Musculoskeletal System - Whole Body (ICD-10-PCS; principal; 2017-09-04)
PROC: F08Z7ZZ Vocational Activities and Functional Community or Work Reintegration Skills Treatment (ICD-10-PCS; principal; 2017-09-04)
DX: G35 Multiple sclerosis (principal); E27.40 Unspecified adrenocortical insufficiency; R13.10 Dysphagia, unspecified; R35.0 Frequency of micturition; R32 Unspecified urinary incontinence; R39.15 Urgency of urination; I25.10 Atherosclerotic heart disease of native coronary artery without angina pectoris; E78.00 Pure hypercholesterolemia, unspecified; I10 Essential (primary) hypertension; Z91.81 History of falling; Z95.5 Presence of coronary angioplasty implant and graft
CPT/HCPCS: 92507-GN; 92522-GN; 92610-GN; 97110-GO; 97110-GP; 97112-GP; 97116-GP; 97162-GP; 97166-GO; 97530-GO; 97530-GP; 97535-GO; 97542-GP; 99366-GO; G0515-GO; J2930